=== PATIENT | male | born 1975 | race African-American/Black ===

== ENCOUNTER 2017-12-10 10:53 | Emergency (ER) | payer OTHER ==
[2017-12-10] MEDS ORDERED: LIDOCAINE 1% 20 ML MDV ONE (13:47)
[2017-12-10 16:45] LABS: Appearance VERY TURBID (CLEAR); Body Fluid Source SYNOVIAL; Color of fluid Red (COLORLESS)
--- NOTE | 2017-12-10 17:14 | EDPHYS ---
Physician Documentation [facility] Name: Cameron Presley III Age: 42 yrs Sex: Male : 1975 Arrival Date: 12/10/2017 Time: 11:09 Bed Treatment Private MD: ED Physician Wilmer Sow HPI: 12/10 14:50 This 42 yrs old Black Male presents to ER via Ambulatory with complaints of Knee Pain. rn 14:50 The patient presents with pain, swelling. The complaints affect the right knee. Onset: rn The symptoms/episode began/occurred 2 day(s) ago. Associated signs and symptoms: Pertinent positives: swelling. Severity of symptoms: At their worst the symptoms were mild, in the emergency department the symptoms are unchanged. The patient has experienced similar episodes in the past. Reports right knee pain and swelling for 2 days, no trauma, has happened multiple times in past, no diagnosis, usually lasts for a few days then goes away, hurts to walk and with severe flexion, no fever, no IV drugs. . Historical: - Allergies: 11:12 Iodine; aj - Home Meds: 11:12 Migraine Med nightly [Active]; aj - PMHx: 11:12 Migraines; aj - PSHx: 11:12 None; aj - Immunization history:: Adult Immunizations up to date. - Social history:: Smoking status: Patient uses tobacco products, smokes one-half pack cigarettes per day. - Family history:: not pertinent. - Hospitalizations: : No recent hospitalization is reported. ROS: 14:50 Constitutional: Negative for fever, chills, and weight loss, MS/Extremity: Negative for rn injury and deformity, Neuro: Negative for headache, weakness, numbness, tingling, and seizure. Exam: 14:50 Constitutional: This is a well developed, well nourished patient who is awake, alert, rn and in no acute distress. MS/ Extremity: Pulses equal, no cyanosis. Neurovascular intact. Painful flexion of knee without warmth/erythema, + mild knee effusion. Vital Signs: 11:12 BP 141 / 81; Pulse 82; Resp 19; Temp 98.3; Pulse Ox 97% on R/A; Weight 102.06 kg; aj Height 5 ft. 10 in. (177.80 cm); Pain 8/10; 11:12 Body Mass Index 32.28 (102.06 kg, 177.80 cm) aj Procedures: 14:40 Joint Treatment: Aspiration of right knee using 18 gauge needle, Lidocaine, Removed 5 rn ml's of yellow fluid, bloody fluid, Specimen sent to lab. Patient tolerated well. MDM: 13:17 Patient medically screened. rn 17:10 Differential diagnosis: tendonitis, inflammatory arthritis, internal derangement of rn knee. Data reviewed: vital signs, nurses notes, radiologic studies, plain films, and as a result, I will discharge patient. Counseling: I had a detailed discussion with the patient and/or guardian regarding: the historical points, exam findings, and any diagnostic results supporting the discharge/admit diagnosis, lab results, radiology results, the need for outpatient follow up, to return to the emergency department if symptoms worsen or persist or if there are any questions or concerns that arise at home. Special discussion: I discussed with the patient/guardian in detail that at this point there is no indication for admission to the hospital. It is understood, however, that if the symptoms persist or worsen the patient needs to return immediately for re-evaluation. ED course: Pt improved just with elevation of legs, fluid clotted but only 25% neutrophils, and 0-1 WBC on gram stain without organisms. . 17:10 Special discussion: Further emergent ED testing is not indicated at this point in time. rn I discussed with the patient/guardian in detail the need to arrange with the PCP or specialist further outpatient testing, MRI. 12/10 14:40 Order name: Fluid Cell Count,Body 12/10 14:40 Order name: Fluid Crystals 12/10 14:40 Order name: Body Fluid Culture 12/10 15:23 Order name: Body Fluid Crystals; Complete Time: 15:35 [facility] 12/10 16:47 Order name: Body Fluid Cell Count; Complete Time: 17:04 [facility] 12/10 16:52 Order name: Body Fluid Culture [facility] 12/10 11:15 Order name: XRAY Knee RIGHT 3 view aj Administered Medications: 15:00 Drug: Lidocaine (1 %) 1 vials Volume: 20 ml; Route: Infiltration; iw Disposition: 12/10/17 17:13 Discharged to Home. Impression: Pain in right knee, Inflammatory Arthritis of right knee. - Condition is Stable. - Discharge Instructions: Arthralgia, Knee Effusion, Knee Pain. - Medication Reconciliation Form, Thank You Letter, Antibiotic Education, Prescription Opioid Use form. - Follow up: Noe Armenta MD; When: As needed; Reason: Recheck today's complaints, Re-evaluation by your physician. - Problem is new. - Symptoms have improved. Signatures: Dispatcher [employer] Farrah Pimentel, Taylor Erwin RN, RN RN iw Nieto, Roman, MD MD rn
--- NOTE | 2017-12-10 17:14 | ER ---
Nurse's Notes [facility] Name: Cameron Presley III Age: 42 yrs Sex: Male : 1975 Arrival Date: 12/10/2017 Time: 11:09 Bed Treatment Private MD: Diagnosis: Pain in right knee;Inflammatory Arthritis of right knee Presentation: 12/10 11:10 Presenting complaint: Patient states: Right knee pain and swelling since Thrusday. aj Transition of care: patient was not received from another setting of care. Onset of symptoms was December 06, 2017. Care prior to arrival: None. 11:10 Method Of Arrival: Ambulatory 11:10 Acuity: BOBBY 4 aj Triage Assessment: 11:12 General: Appears in no apparent distress. comfortable, Behavior is calm, cooperative, aj appropriate for age. Pain: Complains of pain in right knee Pain currently is 7 out of 10 on a pain scale. Neuro: Level of Consciousness is awake, alert, obeys commands, Oriented to person, place, time, situation. Respiratory: Airway is patent Respiratory effort is even, unlabored, Respiratory pattern is regular, symmetrical. Derm: Skin is intact, is healthy with good turgor, Skin is pink, warm \T\ dry. normal. Musculoskeletal: Range of motion: intact in all extremities, Swelling present in right knee Reports pain in right knee. Historical: - Allergies: 11:12 Iodine; aj - Home Meds: 11:12 Migraine Med nightly [Active]; aj - PMHx: 11:12 Migraines; aj - PSHx: 11:12 None; aj - Immunization history:: Adult Immunizations up to date. - Social history:: Smoking status: Patient uses tobacco products, smokes one-half pack cigarettes per day. - Family history:: not pertinent. - Hospitalizations: : No recent hospitalization is reported. Screenin:01 Abuse screen: Denies threats or abuse. Denies injuries from another. Nutritional iw screening: No deficits noted. Tuberculosis screening: No symptoms or risk factors identified. Fall Risk None identified. Assessment: 14:30 General: Appears in no apparent distress. comfortable, Behavior is calm, cooperative. iw Pain: Complains of pain in right knee. Neuro: Level of Consciousness is awake, alert, obeys commands, Oriented to person, place, time, situation, Moves all extremities. Full function. Cardiovascular: Patient's skin is warm and dry. Respiratory: Respiratory effort is even, unlabored. Derm: Skin is pink, warm \T\ dry. normal. Musculoskeletal: Range of motion: limited in right knee. 16:00 Reassessment: Patient appears in no apparent distress at this time. Patient and/or iw family updated on plan of care and expected duration. Pain level reassessed. Patient is alert, oriented x 3, equal unlabored respirations, skin warm/dry/pink. Vital Signs: 11:12 BP 141 / 81; Pulse 82; Resp 19; Temp 98.3; Pulse Ox 97% on R/A; Weight 102.06 kg; aj Height 5 ft. 10 in. (177.80 cm); Pain 8/10; 11:12 Body Mass Index 32.28 (102.06 kg, 177.80 cm) aj ED Course: 11:09 Patient arrived in ED. sb2 11:11 Triage completed. aj 11:12 Arm band placed on left wrist. Patient placed in waiting room, Patient notified of wait aj time. 13:09 Taylor Smith, RN is Primary Nurse. iw 13:17 Wilmer Sow MD is Attending Physician. rn 15:00 Assist provider with aspiration of right knee using 18 gauge needle, Lidocaine, fluid iw removed was yellow, Specimen sent to lab. Performed by Wilmer Sow MD Patient tolerated well. 17:00 Patient has correct armband on for positive identification. iw 17:13 Noe Armenta MD is Referral Physician. rn 17:30 Patient did not have IV access during this emergency room visit. iw Administered Medications: 15:00 Drug: Lidocaine (1 %) 1 vials Volume: 20 ml; Route: Infiltration; iw Outcome: 17:13 Discharge ordered by . rn 17:38 Discharged to home ambulatory. iw 17:38 Condition: good 17:38 Discharge instructions given to patient, Instructed on discharge instructions, follow up and referral plans. Demonstrated understanding of instructions, follow-up care. 17:39 Patient left the ED. iw Signatures: Farrah Valero RN Taylor Erwin, RN Wilmer Whyte MD MD rn Billeau, Sheri sb2
[2017-12-10 17:46] VITALS: BP 141/81; TEMP 98.3; O2SAT 97
--- NOTE | 2017-12-10 18:28 | RAD REPORT ---
EXAM DESCRIPTION: RAD - Knee Right 3 View - 12/10/2017 3:45 pm CLINICAL HISTORY: Knee pain COMPARISON: March 2012 FINDINGS: No fracture, dislocation or periosteal reaction.No joint effusion seen. Minimal narrowing of the medial compartment seen. This is similar to the comparison. Minimal spurring at the quadriceps attachment. This is progressed slightly from 2012. No foreign body or other soft tissue abnormality. IMPRESSION: Knee degenerative changes are present minimally progressive from 2012. No acute bone or joint finding confirmed. Clinical concerns for internal derangement or occult bony injury could be further assessed with MR im aging.
== END 2017-12-10 17:39 | disposition home or self-care (01) ==
LOC: ER 10:53
PROC: 0S9C3ZX Drainage of Right Knee Joint, Percutaneous Approach, Diagnostic (ICD-10-PCS; principal; 2017-12-10)
DX: M13.861 Other specified arthritis, right knee (principal); F17.210 Nicotine dependence, cigarettes, uncomplicated; Z91.048 Other nonmedicinal substance allergy status
CPT/HCPCS: 36415; 87070; 89050; 89060; 99284

== ENCOUNTER 2018-07-30 05:39 | Emergency (ER) | payer OTHER, SELFPAY ==
--- OUTSIDE RECORDS SUMMARY | 2018-07-30 05:40 | XMS REPORT ---
:1975 Author Organization [employer] Care Team Providers Name Role Phone Singh, Na Provider Role Unavailable Allergies, Adverse Reactions, Alerts Substance Reaction Event Type N.K.D.A. 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 Problem Migraine without status G43.909 Active migrainosus, not intractable, unspecified migraine type Assessment Acute pain of right knee M25.561 Active Medications Medication Code Code Instructions Start End Status Dosage System Date Date Cambia [facility] 33022006855 50 MG Orally Active not defined Duexis [facility] 51650505864 800-26.6 MG Active 1 tablet Orally Three times a day Qudexy XR [facility] 27995936788 50 MG Orally Active 1 capsule Once a day Indomethacin [facility] 12044881765 50 MG Orally Active 1 capsule with Twice a day food or milk Pennsaid [facility] 36619563815 2 % Transdermal November Active 2 applications Twice a day 2017 25, to affected 2018 area Results No Known Results Summary Purpose [employer] Submission
--- OUTSIDE RECORDS SUMMARY | 2018-07-30 05:40 | XMS REPORT ---
:1975 Author Organization [employer] Care Team Providers Name Role Phone Singh, Na Provider Role Unavailable Allergies, Adverse Reactions, Alerts Substance Reaction Event Type N.K.D.A. Info Not Available Non Drug Allergy Problems Problem Type Condition Code Onset Dates Condition Status Assessment Primary osteoarthritis of right M17.11 Active knee Problem Primary osteoarthritis of right M17.11 Active knee Problem Diverticulitis of intestine without K57.93 Active perforation or abscess with bleeding, unspecified part of intestinal tract Problem Cluster headache G44.009 Active Assessment Effusion, right knee M25.461 Active Assessment Swelling of knee joint, right M25.461 Active Problem Migraine without status G43.909 Active migrainosus, not intractable, unspecified migraine type Assessment Acute pain of right knee M25.561 Active Medications Medication Code Code Instructions Start End Status Dosage System Date Date Qudexy XR [facility] 23267757033 50 MG Orally Active 1 capsule Once a day Cambia [facility] 76954695539 50 MG Orally Active not defined Indomethacin ND 37289570730 50 MG Orally Active 1 capsule with Twice a day food or milk Duexis [facility] 22737368423 800-26.6 MG NovemberFebruary 16, Active 1 tablet Orally Three 2017 times a day Pennsaid [place] 71042162736 2 % Transdermal November Active 2 applications Twice a day 2017, to affected 2018 area Results No Known Results Summary Purpose [employer] Submission
[2018-07-30] MEDS ORDERED: FENTANYL CITR 100 MCG/2 ML ONE ×2 (06:23→07:13)
[2018-07-30] MEDS ORDERED: DIPHENHYDRAMINE 25 MG TAB/CAP ONE (06:25)
[2018-07-30] MEDS ORDERED: ONDANSETRON 4 MG/2 ML VIAL ONE ×2 (06:26→07:13)
[2018-07-30] MEDS ORDERED: METOCLOPRAMIDE 10 MG/2mL INJ ONE (06:26)
[2018-07-30] MEDS ORDERED: KETOROLAC 30 MG/ML INJ ONE (06:26)
[2018-07-30] MEDS ORDERED: NA CHLORIDE 0.9% 1,000 ML ONE (06:26)
[2018-07-30 06:28] LABS: Absolute Lymphocytes (CBC) 1.4 K/uL (0.7-4.9); Absolute Monocytes 0.7 K/uL (0.1-1.3); Absolute Neutrophil 2.8 K/uL (1.8-8.0); Basophils % 0.4 % (0-1.3); Eosinophils % 3.9 % (0-4.4); Hematocrit 44.5 % (39.6-49.0); Lymphocytes % 27.8 % (15.3-44.8); MCH 32.6 pg (27.0-35.0); MCV 92.5 fL (80-100); MPV 9.2 fL (7.6-11.3); Monocytes % 13.5 % (3.3-12.3); RBC Red Blood Cell Count 4.81 M/uL (4.33-5.43)
[2018-07-30 06:46] LABS: ALT/SGPT 27 U/L (12-78); AST/SGOT 24 U/L (15-37); Albumin 3.9 g/dL (3.4-5.0); Alkaline Phosphatase 51 U/L (45-117); BUN Blood Urea Nitrogen 12 mg/dL (7-18); Bicarbonate 28 mmol/L (21-32); Bilirubin Total 0.3 mg/dL (0.2-1.0); Glucose Level 111 mg/dL (74-106); Potassium 3.6 mmol/L (3.5-5.1); Protein, Total 7.1 g/dL (6.4-8.2); Sodium Level 140 mmol/L (136-145)
--- NOTE | 2018-07-30 06:55 | RAD REPORT ---
EXAM DESCRIPTION: CT - Head Brain Wo Cont - 07/30/2018 6:49 am CLINICAL HISTORY: Chronic migraine headache COMPARISON: CT head January 2010 TECHNIQUE: Axial 5 mm thick images of the head were obtained without IV contrast. All CT scans are performed using dose optimization technique as appropriate and may include automated exposure control or mA/KV adjustment according to patient size. FINDINGS: No intracranial hemorrhage, mass, edema or shift of mid-line structures. No acute infarcti on changes seen. No abnormal extra-axial fluid collections. Ventricles are normal. No significant jason nge to the intracranial findings from prior imaging. Mastoid air cells and visualized portions of the paranasal sinuses are clear. No acute bony findings. IMPRESSION: Negative non-contrast CT head examination.
--- NOTE | 2018-07-30 07:21 | EDPHYS ---
Physician Documentation [facility] Name: Cameron Presley III Age: 43 yrs Sex: Male : 1975 Arrival Date: 07/30/2018 Time: 05:39 Bed 14 Private MD: Yina Singh ED Physician Joe Marcelino HPI: 07/30 06:07 This 43 yrs old Black Male presents to ER via Ambulatory with complaints of Headache. jason 06:07 The patient complains of pain to the forehead, right ear, right scientology, right frontal jason area and right temporal area. The patient describes the headache as pounding, a pressure. Onset: The symptoms/episode began/occurred 2 day(s) ago. Associated signs and symptoms: Pertinent positives: nausea. Severity of symptoms: At its worst the pain was moderate, in the emergency department the pain is unchanged. Headache History: The patient has had previous headaches and this one is similar to previous episodes. The symptoms are alleviated by nothing. the symptoms are aggravated by lights, movement, noise. The patient has experienced similar episodes in the past, several times. Historical: - Allergies: 05:45 Iodine; cc3 - Home Meds: 05:45 topiramate 50 mg oral CSpX 1 cap once daily at bedtime [Active]; cc3 - PMHx: 05:45 Migraines; cc3 - PSHx: 05:45 None; cc3 - Immunization history:: Adult Immunizations not up to date. - Social history:: Smoking status: Patient uses tobacco products, smokes one pack cigarettes per day. - Ebola Screening: : No symptoms or risks identified at this time. - Family history:: not pertinent. ROS: 06:07 Constitutional: Negative for fever, chills, and weight loss, Eyes: Negative for injury, jason pain, redness, and discharge, ENT: Negative for injury, pain, and discharge, Neck: Negative for injury, pain, and swelling, Cardiovascular: Negative for chest pain, palpitations, and edema, Respiratory: Negative for shortness of breath, cough, wheezing, and pleuritic chest pain, Abdomen/GI: Negative for abdominal pain, nausea, vomiting, diarrhea, and constipation, Back: Negative for injury and pain, : Negative for injury, bleeding, discharge, and swelling, MS/Extremity: Negative for injury and deformity, Skin: Negative for injury, rash, and discoloration, Psych: Negative for depression, anxiety, suicide ideation, homicidal ideation, and hallucinations, Allergy/Immunology: Negative for hives, rash, and allergies, Endocrine: Negative for neck swelling, polydipsia, polyuria, polyphagia, and marked weight changes, Hematologic/Lymphatic: Negative for swollen nodes, abnormal bleeding, and unusual bruising. 06:07 Neuro: Positive for headache, of the right temporal area and right frontal area and right scientology. Exam: 06:07 Constitutional: This is a well developed, well nourished patient who is awake, alert, jason and in no acute distress. Head/Face: Normocephalic, atraumatic. Eyes: Pupils equal round and reactive to light, extra-ocular motions intact. Lids and lashes normal. Conjunctiva and sclera are non-icteric and not injected. Cornea within normal limits. Periorbital areas with no swelling, redness, or edema. ENT: Nares patent. No nasal discharge, no septal abnormalities noted. Tympanic membranes are normal and external auditory canals are clear. Oropharynx with no redness, swelling, or masses, exudates, or evidence of obstruction, uvula midline. Mucous membranes moist. Neck: Trachea midline, no thyromegaly or masses palpated, and no cervical lymphadenopathy. Supple, full range of motion without nuchal rigidity, or vertebral point tenderness. No Meningismus. Chest/axilla: Normal chest wall appearance and motion. Nontender with no deformity. No lesions are appreciated. Cardiovascular: Regular rate and rhythm with a normal S1 and S2. No gallops, murmurs, or rubs. Normal PMI, no JVD. No pulse deficits. Respiratory: Lungs have equal breath sounds bilaterally, clear to auscultation and percussion. No rales, rhonchi or wheezes noted. No increased work of breathing, no retractions or nasal flaring. Abdomen/GI: Soft, non-tender, with normal bowel sounds. No distension or tympany. No guarding or rebound. No evidence of tenderness throughout. Back: No spinal tenderness. No costovertebral tenderness. Full range of motion. Male : Normal genitalia with no discharge or lesions. Skin: Warm, dry with normal turgor. Normal color with no rashes, no lesions, and no evidence of cellulitis. MS/ Extremity: Pulses equal, no cyanosis. Neurovascular intact. Full, normal range of motion. Neuro: Awake and alert, GCS 15, oriented to person, place, time, and situation. Cranial nerves II-XII grossly intact. Motor strength 5/5 in all extremities. Sensory grossly intact. Cerebellar exam normal. Normal gait. Psych: Awake, alert, with orientation to person, place and time. Behavior, mood, and affect are within normal limits. 06:07 Neck: ROM/movement: is normal, no acute changes, Meningeal signs: are not present, Kernig's sign is negative, Brudzinski's sign is negative. Vital Signs: 05:45 BP 165 / 102; Pulse 81; Resp 20 S; Temp 98(O); Pulse Ox 98% on R/A; Weight 104.33 kg; cc3 Height 5 ft. 10 in. (177.80 cm) (R); Pain 9/10; 07:17 BP 145 / 92; Pulse 52; Resp 17 S; Pulse Ox 100% on R/A; Pain 10/10; sg 05:45 Body Mass Index 33.00 (104.33 kg, 177.80 cm) cc3 MDM: 05:45 Patient medically screened. [facility] 06:10 Data reviewed: vital signs, nurses notes, lab test result(s). [facility] 07/30 06:07 Order name: CBC with Diff; Complete Time: 07:19 jason 07/30 06:07 Order name: Comprehensive Metabolic Panel; Complete Time: 07:19 jason 07/30 06:15 Order name: CT Head Brain wo Cont; Complete Time: 07:19 ms 07/30 06:07 Order name: Oxygen; Complete Time: 06:11 [facility] Administered Medications: 06:15 Drug: Benadryl 50 mg Route: PO; cc3 07:00 Follow up: Response: No adverse reaction; No change in condition 06:20 Drug: NS 0.9% 1000 ml Route: IV; Rate: 1 bolus; Site: right antecubital; cc3 06:23 Drug: fentaNYL (PF) 50 mcg Route: IVP; Site: right antecubital; cc3 07:00 Follow up: Response: No adverse reaction; Pain is unchanged, physician notified 06:26 Drug: TORadol 30 mg Route: IVP; Site: right antecubital; cc3 07:11 Follow up: Response: No adverse reaction; No change in condition sg 06:30 Drug: Reglan 10 mg Route: IVP; Site: right antecubital; cc3 07:00 Follow up: Response: No adverse reaction; Pain is unchanged, physician notified sg 06:35 Drug: Zofran 4 mg Route: IVP; Site: right antecubital; cc3 07:00 Follow up: Response: No adverse reaction; No change in condition sg 07:10 Drug: fentaNYL (PF) 50 mcg Route: IVP; Site: right antecubital; sg 07:10 Drug: Zofran 4 mg Route: IVP; Site: right antecubital; Disposition: 07/30/18 07:20 Discharged to Home. Impression: Headache, Migraine. - Condition is Stable. - Discharge Instructions: Migraine Headache, Migraine Headache, [id number]. - Prescriptions for Fioricet with Codeine 50- 325-40-30 mg Oral capsule - take 1 capsule by ORAL route every 4 hours as needed not to exceed 6 capsules per 24hrs; 24 capsule. Zofran 4 mg Oral Tablet - take 1 tablet by ORAL route every 12 hours As needed; 20 tablet. - Work release form, Medication Reconciliation Form, Thank You Letter, Antibiotic Education, Prescription Opioid Use form. - Follow up: Yina Singh; When: 2 - 3 days; Reason: Recheck today's complaints, Continuance of care, Re-evaluation by your physician. Follow up: Regulo Cole MD; When: 2 - 3 days; Reason: Recheck today's complaints, Re-evaluation by your physician. - Problem is new. - Symptoms have improved. Signatures: Dispatcher [employer] EDCoty Bhandari Steven, RN RN Joe Hernández MD MD cha Cordel, Charlene cc3 Corrections: (The following items were deleted from the chart) 07:21 07:20 07/30/2018 07:20 Discharged to Home. Impression: Headache; Migraine. Condition is jason Stable. Discharge Instructions: Migraine Headache, Migraine Headache, [id number]. Prescriptions for Fioricet with Codeine 03-123-10-30 mg Oral capsule - take 1 capsule by ORAL route every 4 hours as needed not to exceed 6 capsules per 24hrs; 24 capsule, Zofran 4 mg Oral Tablet - take 1 tablet by ORAL route every 12 hours As needed; 20 tablet. and Forms are Medication Reconciliation Form, Thank You Letter, Antibiotic Education, Prescription Opioid Use. Follow up: Yina Singh; When: 2 - 3 days; Reason: Recheck today's complaints, Continuance of care, Re-evaluation by your physician. Problem is new. Symptoms have improved. [facility] 08:03 07:21 07/30/2018 07:20 Discharged to Home. Impression: Headache; Migraine. Condition is bd Stable. Discharge Instructions: Migraine Headache, Migraine Headache, [id number]. Prescriptions for Fioricet with Codeine 79-074-90-30 mg Oral capsule - take 1 capsule by ORAL route every 4 hours as needed not to exceed 6 capsules per 24hrs; 24 capsule, Zofran 4 mg Oral Tablet - take 1 tablet by ORAL route every 12 hours As needed; 20 tablet. and Forms are Medication Reconciliation Form, Thank You Letter, Antibiotic Education, Prescription Opioid Use. Follow up: Yina Singh; When: 2 - 3 days; Reason: Recheck today's complaints, Continuance of care, Re-evaluation by your physician. Follow up: Regulo Cole; When: 2 - 3 days; Reason: Recheck today's complaints, Re-evaluation by your physician. Problem is new. Symptoms have improved. [facility]
--- NOTE | 2018-07-30 07:21 | ER ---
Nurse's Notes [facility] Name: Cameron Presley III Age: 43 yrs Sex: Male : 1975 Arrival Date: 07/30/2018 Time: 05:39 Bed 14 Private MD: Yina Singh Diagnosis: Headache;Migraine Presentation: 07/30 05:45 Presenting complaint: Patient states: intermittent chronic migraine headache since 2 cc3 months. Transition of care: patient was not received from another setting of care. Onset of symptoms was July 30, 2018. Risk Assessment: Do you want to hurt yourself or someone else? Patient reports no desire to harm self or others. Initial Sepsis Screen: Does the patient meet any 2 criteria? No. Patient's initial sepsis screen is negative. Does the patient have a suspected source of infection? No. Patient's initial sepsis screen is negative. Care prior to arrival: Medication(s) given: patient said he took Ibuprofen 2 tabs (800 mg each tab) at around 0300H this morning. 05:45 Method Of Arrival: Ambulatory cc3 05:45 Acuity: BOBBY 3 cc3 Triage Assessment: 05:45 Headache History: The patient has had previous headaches and this one is more severe cc3 than previous episodes. General: Appears in no apparent distress. uncomfortable, Behavior is calm, cooperative, appropriate for age. Pain: Complains of pain in headache Pain currently is 9 out of 10 on a pain scale. Quality of pain is described as aching, Pain began intermittent since 2 months Also complains of no other associated symptoms. EENT: No signs and/or symptoms were reported regarding the EENT system. Neuro: Level of Consciousness is awake, alert, obeys commands, Oriented to person, place, time, situation, Appropriate for age. Cardiovascular: Denies chest pain. Respiratory: Airway is patent Respiratory effort is even, unlabored, Respiratory pattern is regular, symmetrical. GI: Abdomen is round obese. : No signs and/or symptoms were reported regarding the genitourinary system. Derm: No signs and/or symptoms reported regarding the dermatologic system. Musculoskeletal: Circulation, motion, and sensation intact. Range of motion: intact in all extremities. Historical: - Allergies: 05:45 Iodine; cc3 - Home Meds: 05:45 topiramate 50 mg oral CSpX 1 cap once daily at bedtime [Active]; cc3 - PMHx: 05:45 Migraines; cc3 - PSHx: 05:45 None; cc3 - Immunization history:: Adult Immunizations not up to date. - Social history:: Smoking status: Patient uses tobacco products, smokes one pack cigarettes per day. - Ebola Screening: : No symptoms or risks identified at this time. - Family history:: not pertinent. Screenin:45 Abuse screen: Denies threats or abuse. Denies injuries from another. Nutritional cc3 screening: No deficits noted. Tuberculosis screening: No symptoms or risk factors identified. Fall Risk Ambulatory Aid- None/Bed Rest/Nurse Assist (0 pts). Gait- Normal/Bed Rest/Wheelchair (0 pts) Mental Status- Oriented to own ability (0 pts). Assessment: 05:45 General: see triage assessment. cc3 06:40 Reassessment: Patient taken to CT scan department by the molding technician for CT scan [facility] head brain without contrast procedure. 06:55 Reassessment: Patient came back from CT scan department, handed over to morning shift [facility] for continuity of care. 07:08 Reassessment: Patient appears in no apparent distress at this time. Patient and/or sg family updated on plan of care and expected duration. Pain level reassessed. pt tearful, reports no change in condition, reports pain still 10/10, notified, new orders received, pt medicated at this time, see EMAR. 07:12 General: Appears uncomfortable, well groomed, well developed, well nourished. Pain: sg Complains of pain in top of head and forehead. 07:21 Reassessment: awaiting IV bolus to infuse prior to discharge to home. sg Vital Signs: 05:45 BP 165 / 102; Pulse 81; Resp 20 S; Temp 98(O); Pulse Ox 98% on R/A; Weight 104.33 kg; cc3 Height 5 ft. 10 in. (177.80 cm) (R); Pain 9/10; 07:17 BP 145 / 92; Pulse 52; Resp 17 S; Pulse Ox 100% on R/A; Pain 10/10; sg 05:45 Body Mass Index 33.00 (104.33 kg, 177.80 cm) [facility] ED Course: 05:39 Patient arrived in ED. ds1 05:40 Yina Singh MD is Private Physician. ds1 05:44 Joe Marcelino MD is Attending Physician. jason 05:45 Arm band placed on left wrist. cc3 05:45 Patient has correct armband on for positive identification. Bed in low position. Call cc3 light in reach. Side rails up X 1. campus monitor on. Pulse ox on. NIBP on. 05:49 Ciera Kinney is Primary Nurse. cc3 05:57 Triage completed. cc3 06:05 Inserted saline lock: 20 gauge in right antecubital area, using aseptic technique. cc3 Blood collected. 06:[address] via stretcher. kw1 06:49 CT Head Brain wo Cont In Process Unspecified. EDMS 06:50 CT completed. Patient tolerated procedure well. Patient moved back from CT. kw1 06:56 Kenroy Canas RN is Primary Nurse. sg 06:56 Report given to DAVID Jasmine. cc3 06:59 Assisted to bathroom. sg 07:20 Yina Singh MD is Referral Physician. [facility] 07:21 Regulo Cole MD is Referral Physician. [facility] Administered Medications: 06:15 Drug: Benadryl 50 mg Route: PO; cc3 07:00 Follow up: Response: No adverse reaction; No change in condition sg 06:20 Drug: NS 0.9% 1000 ml Route: IV; Rate: 1 bolus; Site: right antecubital; cc3 06:23 Drug: fentaNYL (PF) 50 mcg Route: IVP; Site: right antecubital; cc3 07:00 Follow up: Response: No adverse reaction; Pain is unchanged, physician notified sg 06:26 Drug: TORadol 30 mg Route: IVP; Site: right antecubital; cc3 07:11 Follow up: Response: No adverse reaction; No change in condition sg 06:30 Drug: Reglan 10 mg Route: IVP; Site: right antecubital; cc3 07:00 Follow up: Response: No adverse reaction; Pain is unchanged, physician notified sg 06:35 Drug: Zofran 4 mg Route: IVP; Site: right antecubital; cc3 07:00 Follow up: Response: No adverse reaction; No change in condition sg 07:10 Drug: fentaNYL (PF) 50 mcg Route: IVP; Site: right antecubital; sg 07:10 Drug: Zofran 4 mg Route: IVP; Site: right antecubital; sg Outcome: 07:20 Discharge ordered by MD. gomez 08:03 Patient left the ED. bd Signatures: Dispatcher [employer] EDMS Coty Green Steven, RN RN sg Anderson, Corey, MD MD cha Sanford, Mary Carmen ds1 Elizabeth Borrego1 Ciera Kinney cc3 Corrections: (The following items were deleted from the chart) 06:43 05:45 Headache History: The patient has had previous headaches and this one is similar cc3 to previous episodes, cc3 06:46 06:40 Reassessment: Patient taken to CT scan department by the molding technician. cc3 cc3 06:47 06:40 Reassessment: Patient taken to CT scan department by the molding technician for cc3 CT scan brain without contrast procedure. cc3
[2018-07-30 08:10] VITALS: TEMP 98
[2018-07-30 08:11] VITALS: BP 145/92; O2SAT 100
== END 2018-07-30 08:03 | disposition home or self-care (01) ==
LOC: ER 05:39
DX: G43.909 Migraine, unspecified, not intractable, without status migrainosus (principal); Z91.09 Other allergy status, other than to drugs and biological substances
CPT/HCPCS: 36415; 70450; 80053; 85025; 96374; 96375; 99285; J2405; J2765; J3010; J7030

== ENCOUNTER 2019-09-17 09:36 | Emergency (ER) | payer SELFPAY ==
--- OUTSIDE RECORDS SUMMARY | 2019-09-17 09:38 | XMS REPORT ---
[...] Status Dosage System Date Date Qudexy XR [facility] 79046612291 50 MG Orally Active 1 capsule Once a day Cambia [facility] 28030043747 50 MG Orally Active not defined Indomethacin ND 15680390866 50 MG Orally Active 1 capsule with Twice a day food or milk Duexis [facility] 49540236305 800-26.6 MG NovemberFebruary 16, Active 1 tablet Orally Three 2017 times a day [place] 98215530055 2 % Transdermal November Active 2 applications Twice a day 2017, to affected 2018 area Results No Known Results Summary Purpose eClinicalWorks Submission
--- OUTSIDE RECORDS SUMMARY | 2019-09-17 09:38 | XMS REPORT ---
[...] End Status Dosage System Date Date Cambia [facility] 39149686621 50 MG Orally Active not defined Duexis [facility] 71773628055 800-26.6 MG Active 1 tablet Orally Three times a day Qudexy XR [facility] 52532507378 50 MG Orally Active 1 capsule Once a day Indomethacin [facility] 45677304981 50 MG Orally Active 1 capsule with Twice a day food or milk Pennsaid [facility] 60949100327 2 % Transdermal November Active 2 applications Twice a day 2017 25, to affected 2018 area Results No Known Results Summary Purpose eClinicalWorks Submission
[2019-09-17 10:04] LABS: Absolute Lymphocytes (CBC) 1.6 K/uL (0.7-4.9); Basophils % 0.5 % (0-1.3); Hematocrit 45.2 % (39.6-49.0); Lymphocytes % 27.3 % (15.3-44.8); MPV 8.7 fL (7.6-11.3); RBC Red Blood Cell Count 4.95 M/uL (4.33-5.43)
[2019-09-17 10:05] LABS: Protime INR 1.03
--- NOTE | 2019-09-17 10:29 | RAD REPORT ---
EXAM DESCRIPTION: RAD - Chest Single View - 09/17/2019 10:24 am CLINICAL HISTORY: CHEST PAIN Chest pain. COMPARISON: Chest Pa And Lat (2 Views) dated 12/06/2016; CHEST SINGLE VIEW dated 07/19/2015; CHEST PA AND LAT 2 VIEW dated 10/07/2012; CHEST SINGLE VIEW dated 12/11/2011 FINDINGS: Portable technique limits examination quality. The lungs are grossly clear. The heart is normal in size. No displaced fractures. IMPRESSION: No acute intrathoracic process suspected.
[2019-09-17 11:27] LABS: ALT/SGPT 39 U/L (12-78); AST/SGOT 26 U/L (15-37); Alkaline Phosphatase 63 U/L (45-117); BUN Blood Urea Nitrogen 10 mg/dL (7-18); Bicarbonate 25 mmol/L (21-32); Bilirubin Direct 0.1 mg/dL (0-0.2); Bilirubin Total 0.4 mg/dL (0.2-1.0); Glucose Level 104 mg/dL (74-106); Magnesium 2.1 mg/dL (1.8-2.4); NT PRO-BNP 12 pg/mL (<125); Potassium 3.8 mmol/L (3.5-5.1); Protein, Total 7.7 g/dL (6.4-8.2); Sodium Level 138 mmol/L (136-145); Troponin (Emerg Dept Use Only) < 0.02 ng/mL (0.0-0.045)
--- NOTE | 2019-09-17 13:17 | ER ---
Nurse's Notes [facility] Name: Cameron Presley III Age: 44 yrs Sex: Male : 1975 Arrival Date: 09/17/2019 Time: 09:37 Bed 7 Private MD: Diagnosis: Chest pain, unspecified Presentation: 09/17 09:47 Presenting complaint: Patient states: Sudden onset of left sided chest pain at 0800, jl7 squeezing and SOB, rated 10/10. Pain has decreased but still rated 5/10 at this time. Transition of care: patient was not received from another setting of care. Onset of symptoms was September 17, 2019 at 08:00. Risk Assessment: Do you want to hurt yourself or someone else? Patient reports no desire to harm self or others. Initial Sepsis Screen: Does the patient meet any 2 criteria? No. Patient's initial sepsis screen is negative. Does the patient have a suspected source of infection? No. Patient's initial sepsis screen is negative. Care prior to arrival: None. 09:47 Method Of Arrival: Ambulatory 7 09:47 Acuity: BOBBY 3 jl7 Triage Assessment: 09:49 General: Appears in no apparent distress. uncomfortable, Behavior is cooperative, jl7 appropriate for age, anxious. Pain: Complains of pain in anterior aspect of left upper chest Pain does not radiate. Pain currently is 5 out of 10 on a pain scale. at worst was 10 out of 10 on a pain scale. Quality of pain is described as squeezing, Pain began 2 hours ago. Is intermittent. EENT: No signs and/or symptoms were reported regarding the EENT system. Neuro: Level of Consciousness is awake, alert, obeys commands, Oriented to person, place, time, situation. Cardiovascular: Reports chest pain, Heart tones S1 S2 present Patient's skin is warm and dry. Respiratory: Reports shortness of breath Airway is patent Respiratory effort is even, unlabored, Respiratory pattern is regular, symmetrical, Breath sounds are clear bilaterally. GI: No signs and/or symptoms were reported involving the gastrointestinal system. : No signs and/or symptoms were reported regarding the genitourinary system. Derm: Skin is dry, Skin is normal, Skin temperature is warm. Musculoskeletal: No signs and/or symptoms reported regarding the musculoskeletal system. Historical: - Allergies: 09:49 Iodine; jl7 - Home Meds: 09:49 None [Active]; jl7 - PMHx: 09:49 Migraines; jl7 - PSHx: 09:49 None; jl7 - Immunization history:: Adult Immunizations not up to date. - Social history:: Smoking status: Patient uses tobacco products, smokes one pack cigarettes per day. - Ebola Screening: : No symptoms or risks identified at this time. Screenin:53 Abuse screen: Denies threats or abuse. Denies injuries from another. Nutritional jl7 screening: No deficits noted. Tuberculosis screening: No symptoms or risk factors identified. Fall Risk IV access (20 points). Total Oconnor Fall Scale indicates No Risk (0-24 pts). Assessment: :53 General: See triage assessment. jl7 11:19 Reassessment: Patient appears in no apparent distress at this time. Patient and/or jl7 family updated on plan of care and expected duration. Pain level reassessed. Patient is alert, oriented x 3, equal unlabored respirations, skin warm/dry/pink. Patient states symptoms have improved. Pain: Denies pain. 12:00 Reassessment: Patient appears in no apparent distress at this time. No changes from jl7 previously documented assessment. Patient and/or family updated on plan of care and expected duration. Pain level reassessed. Patient is alert, oriented x 3, equal unlabored respirations, skin warm/dry/pink. 13:03 Reassessment: Patient appears in no apparent distress at this time. No changes from jl7 previously documented assessment. Patient and/or family updated on plan of care and expected duration. Pain level reassessed. Patient is alert, oriented x 3, equal unlabored respirations, skin warm/dry/pink. Vital Signs: 09:49 BP 135 / 91; Pulse 80; Resp 14 S; Pulse Ox 95% on R/A; Weight 111.13 kg (R); Pain 5/10; jl7 11:19 BP 145 / 99; Pulse 76; Resp 17 S; Pulse Ox 96% on R/A; Pain 0/10; jl7 13:03 BP 148 / 85; Pulse 76; Resp 16 S; Pulse Ox 97% on R/A; Pain 0/10; jl7 ED Course: 09:37 Patient arrived in ED. rg4 09:40 Joaquín Goldman MD is Attending Physician. kdr 09:47 Maged Gonsalves, RN is Primary Nurse. jl7 09:49 Triage completed. jl7 :49 Arm band placed on right wrist. jl7 :53 Patient has correct armband on for positive identification. Placed in gown. Bed in low jl7 position. Call light in reach. Side rails up X 1. gambling monitor on. Pulse ox on. NIBP on. :53 EKG completed in triage. Results shown to MD. jl7 :53 Patient maintains SpO2 saturation greater than 95% on room air. jl7 09:55 Inserted saline lock: 22 gauge in left antecubital area, using aseptic technique. Blood kj1 collected. :55 Initial lab(s) drawn, by ED staff, sent to lab. jl7 10:08 XRAY Chest (1 view) In Process Unspecified. EDMS 13:33 No provider procedures requiring assistance completed. IV discontinued, intact, jl7 bleeding controlled, No redness/swelling at site. Pressure dressing applied. Administered Medications: No medications were administered Outcome: 13:15 Discharge ordered by . kdr 13:33 Discharged to home ambulatory. jl7 13:33 Condition: stable 13:33 Discharge instructions given to patient, Instructed on discharge instructions, follow up and referral plans. medication usage, Demonstrated understanding of instructions, follow-up care, medications, Prescriptions given X 3. 13:34 Patient left the ED. jl7 Signatures: Dispatcher [employer] EDIA Joaquín Goldman MD MD kdr Garcia, Rubi rg4 Maged Gonsalves, RN RN jl7 Denisa Verdugo kj1
--- NOTE | 2019-09-17 13:18 | EDPHYS ---
Physician Documentation [facility] Name: Cameron Presley III Age: 44 yrs Sex: Male : 1975 Arrival Date: 09/17/2019 Time: 09:37 Bed 7 Private MD: ED Physician Joaquín Goldman HPI: 09/17 13:07 This 44 yrs old Black Male presents to ER via Ambulatory with complaints of Chest Pain, kdr Breathing Difficulty. 13:07 The patient or guardian reports chest pain that is located primarily in the substernal kdr area, anterior chest wall, left. Onset: suddenly, just prior to arrival. The pain does not radiate. Associated signs and symptoms: Pertinent positives: shortness of breath, Pertinent negatives: diaphoresis, lower extremity pain, lower extremity swelling, nausea, near syncope, palpitations. The chest pain is described as sharp, stabbing. Duration: The patient or guardian reports a single episode, that is now resolved, resolved shortly after arriving in the ED. Severity of pain: At its worst the pain was moderate severe just prior to arrival, in the emergency department the pain has resolved. The patient has not experienced similar symptoms in the past. The patient has not recently seen a physician. The patient had been picking up [place] wrapping paper when he stood up and had immediate tearing midsternal cheat pain that radiated to the middle of his chest. It lasted until shortly after arrival in the ED. At time of exam, he was pain free. He had not had this before and he has minimal risk factors and family history to support cardiac disease/event as a likely cause.. Historical: - Allergies: 09:49 Iodine; jl7 - Home Meds: 09:49 None [Active]; jl7 - PMHx: 09:49 Migraines; jl7 - PSHx: 09:49 None; jl7 - Immunization history:: Adult Immunizations not up to date. - Social history:: Smoking status: Patient uses tobacco products, smokes one pack cigarettes per day. - Ebola Screening: : No symptoms or risks identified at this time. ROS: 13:07 Constitutional: Negative for fever, chills, and weight loss, Eyes: Negative for injury, kdr pain, redness, and discharge, ENT: Negative for injury, pain, and discharge, Neck: Negative for injury, pain, and swelling, Respiratory: Negative for shortness of breath, cough, wheezing, and pleuritic chest pain, Abdomen/GI: Negative for abdominal pain, nausea, vomiting, diarrhea, and constipation, Back: Negative for injury and pain, : Negative for injury, bleeding, discharge, and swelling, MS/Extremity: Negative for injury and deformity, Skin: Negative for injury, rash, and discoloration, Neuro: Negative for headache, weakness, numbness, tingling, and seizure activity. Psych: Negative for depression, anxiety, suicide ideation, homicidal ideation, and hallucinations, Allergy/Immunology: Negative for hives, rash, and allergies, Endocrine: Negative for neck swelling, polydipsia, polyuria, polyphagia, and marked weight changes, Hematologic/Lymphatic: Negative for swollen nodes, abnormal bleeding, and unusual bruising. Exam: 13:07 Constitutional: This is a well developed, well nourished patient who is awake, alert, kdr and in no acute distress. Head/Face: Normocephalic, atraumatic. Eyes: Pupils equal round and reactive to light, extra-ocular motions intact. Lids and lashes normal. Conjunctiva and sclera are non-icteric and not injected. Cornea within normal limits. Periorbital areas with no swelling, redness, or edema. Neck: Trachea midline, no thyromegaly or masses palpated, and no cervical lymphadenopathy. Supple, full range of motion without nuchal rigidity, or vertebral point tenderness. No Meningismus. Chest/axilla: Normal chest wall appearance and motion. Nontender with no deformity. No lesions are appreciated. Cardiovascular: Regular rate and rhythm with a normal S1 and S2. No gallops, murmurs, or rubs. Normal PMI, no JVD. No pulse deficits. Respiratory: Lungs have equal breath sounds bilaterally, clear to auscultation and percussion. No rales, rhonchi or wheezes noted. No increased work of breathing, no retractions or nasal flaring. Abdomen/GI: Soft, non-tender, with normal bowel sounds. No distension or tympany. No guarding or rebound. No evidence of tenderness throughout. Back: No spinal tenderness. No costovertebral tenderness. Full range of motion. Skin: Warm, dry with normal turgor. Normal color with no rashes, no lesions, and no evidence of cellulitis. MS/ Extremity: Pulses equal, no cyanosis. Neurovascular intact. Full, normal range of motion. Neuro: Awake and alert, GCS 15, oriented to person, place, time, and situation. Cranial nerves II-XII grossly intact. Motor strength 5/5 in all extremities. Sensory grossly intact. Cerebellar exam normal. Normal gait. Psych: Awake, alert, with orientation to person, place and time. Behavior, mood, and affect are within normal limits. Vital Signs: 09:49 BP 135 / 91; Pulse 80; Resp 14 S; Pulse Ox 95% on R/A; Weight 111.13 kg (R); Pain 5/10; jl7 11:19 BP 145 / 99; Pulse 76; Resp 17 S; Pulse Ox 96% on R/A; Pain 0/10; jl7 13:03 BP 148 / 85; Pulse 76; Resp 16 S; Pulse Ox 97% on R/A; Pain 0/10; jl7 MDM: 13:07 HEART Score: History: Slightly Suspicious (0), ECG: Normal (0), Age: < or = 45 years kdr (0), Risk Factors: No Risk Factors Known (0), Troponin: < or = 1 x Normal Limit (0), Total Score = 0. Data reviewed: vital signs, nurses notes, lab test result(s), radiologic studies. 13:15 Patient medically screened. [facility] 09/17 09:49 Order name: Basic Metabolic Panel; Complete Time: 11:[address] [facility] 09/17 09:49 Order name: CBC with Diff; Complete Time: 11:[address] [facility] 09/17 09:49 Order name: LFT's; Complete Time: 11:[address] [facility] 09/17 09:49 Order name: Magnesium; Complete Time: 11:[address] [facility] 09/17 09:49 Order name: NT PRO-BNP; Complete Time: 11:[address] [facility] 09/17 09:49 Order name: PT-INR; Complete Time: 11:[address] [facility] 09/17 09:49 Order name: Troponin (emerg Dept Use Only); Complete Time: 11:[address] [facility] 09/17 09:49 Order name: XRAY Chest (1 view); Complete Time: 11:[address] [facility] 09/17 09:49 Order name: EKG; Complete Time: 09:[address] [facility] 09/17 09:49 Order name: Cardiac monitoring; Complete Time: 09:[address] [facility] 09/17 09:49 Order name: EKG - Nurse/Tech; Complete Time: 09:[address] [facility] 09/17 09:49 Order name: IV Saline Lock; Complete Time: 09:[address] [facility] 09/17 09:49 Order name: Labs collected and sent; Complete Time: 09:[address] [facility] 09/17 11:50 Order name: Troponin (emerg Dept Use Only); Complete Time: 13:[address] [facility] 09/17 09:49 Order name: O2 Per Protocol; Complete Time: 09:[address] [facility] 09/17 09:49 Order name: O2 Sat Monitoring; Complete Time: 09:[address] [facility] 09/17 10:20 Order name: Labs - recollect needed: chemistry; Complete Time: 10:47 iw Administered Medications: No medications were administered Disposition: 09/17/19 13:15 Discharged to Home. Impression: Chest pain, unspecified. - Condition is Stable. - Discharge Instructions: Nonspecific Chest Pain, [id number]. - Prescriptions for Ibuprofen 800 mg Oral Tablet - take 1 tablet by ORAL route every 12 hours As needed take with food; 20 tablet. Pepcid 20 mg Oral Tablet - take 1 tablet by ORAL route every 12 hours for 10 days; 20 tablet. Tramadol 50 mg Oral Tablet - take 1 tablet by ORAL route every 8 hours as needed; 12 tablet. - Medication Reconciliation Form, Thank You Letter, Prescription Opioid Use form. - Follow up: Private Physician; When: 2 - 3 days; Reason: If symptoms return, Further diagnostic work-up, Recheck today's complaints, Continuance of care, Re-evaluation by your physician. - Problem is new. - Symptoms are resolved. Signatures: Dispatcher [employer] EDDE Joaquín Goldman MD MD kdr Taylor Smith RN RN iw Maged Gonsalves RN RN jl7 Corrections: (The following items were deleted from the chart) 13:34 13:15 09/17/2019 13:15 Discharged to Home. Impression: Chest pain, unspecified. jl7 Condition is Stable. Forms are Medication Reconciliation Form, Thank You Letter, Antibiotic Education, Prescription Opioid Use. Follow up: Private Physician; When: 2 - 3 days; Reason: If symptoms return, Further diagnostic work-up, Recheck today's complaints, Continuance of care, Re-evaluation by your physician. Problem is new. Symptoms are resolved. kdr
[2019-09-17 13:44] VITALS: BP 148/85; O2SAT 97
--- NOTE | 2019-09-18 08:10 | EKG ---
Test Date: 2019-09-17 Test Time: 09:42:37 [employer] Dessert: [place] MEASUREMENT RESULTS: Intervals: Rate: 81 CA: 216 QRSD: 94 QT: 354 QTc: 411 Bruno: P: 49 CA: 216 QRS: 64 T: 32 INTERPRETIVE STATEMENTS: Sinus rhythm with 1st degree AV block Otherwise normal ECG Compared to ECG 12/06/2016 08:41:05 First degree AV block now present Electronically Signed On 09-18-19 08:10:04 ASSISTANT SECRETARY by Yohannes Chao
== END 2019-09-17 13:34 | disposition home or self-care (01) ==
LOC: ER 09:36
DX: R07.9 Chest pain, unspecified (principal); Z91.09 Other allergy status, other than to drugs and biological substances; F17.210 Nicotine dependence, cigarettes, uncomplicated
CPT/HCPCS: 36415; 71045; 80048; 80076; 83735; 83880; 84484; 85025; 85610; 93005; 99285

== ENCOUNTER 2019-12-30 09:33 | Emergency (ER) | payer SELFPAY ==
[2019-12-30] MEDS ORDERED: KETOROLAC 30 MG/ML INJ ONE (09:55)
[2019-12-30] MEDS ORDERED: METOCLOPRAMIDE 10 MG/2mL INJ ONE (09:55)
[2019-12-30] MEDS ORDERED: DIPHENHYDRAMINE 50 MG/ML VIAL ONE (09:55)
[2019-12-30] MEDS ORDERED: NA CHLORIDE 0.9% 1,000 ML ONE (09:55)
[2019-12-30] MEDS ORDERED: NA CHLORIDE 0.9% 50 ML IV ONE (09:59)
[2019-12-30] MEDS ORDERED: METHYLPREDNISOLONE 125 MG INJ ONE (10:01)
[2019-12-30] MEDS ORDERED: FAMOTIDINE 20 MG/2 ML VIAL IV ONE (10:01)
[2019-12-30 10:05] LABS: Absolute Lymphocytes (CBC) 1.7 K/uL (0.7-4.9); Basophils % 0.6 % (0-1.3); Hematocrit 46.1 % (39.6-49.0); Lymphocytes % 21.3 % (15.3-44.8); MPV 8.8 fL (7.6-11.3); RBC Red Blood Cell Count 5.04 M/uL (4.33-5.43)
--- NOTE | 2019-12-30 10:22 | RAD REPORT ---
EXAM DESCRIPTION: CT - Head Brain Wo Cont - 12/30/2019 10:07 am CLINICAL HISTORY: WORST HEADACHE COMPARISON: Head Brain Wo Cont dated 07/30/2018 TECHNIQUE: Axial 5 mm thick images of the head were obtained without IV contrast. All CT scans are performed using dose optimization technique as appropriate and may include automated exposure control or mA/KV adjustment according to patient size. FINDINGS: No intracranial hemorrhage, mass, edema or shift of mid-line structures. No acute infarcti on changes seen. No abnormal extra-axial fluid collections. Ventricles are normal. Mastoid air cells and visualized portions of the paranasal sinuses are clear. No acute bony findings. No changes from prior imaging. IMPRESSION: Negative non-contrast CT head examination.
[2019-12-30 10:31] LABS: ALT/SGPT 34 U/L (12-78); AST/SGOT 21 U/L (15-37); Albumin 3.9 g/dL (3.4-5.0); Alkaline Phosphatase 70 U/L (45-117); BUN Blood Urea Nitrogen 7 mg/dL (7-18); Bicarbonate 25 mmol/L (21-32); Bilirubin Total 0.4 mg/dL (0.2-1.0); Glucose Level 96 mg/dL (74-106); Potassium 3.5 mmol/L (3.5-5.1); Protein, Total 7.9 g/dL (6.4-8.2); Sodium Level 137 mmol/L (136-145)
--- OUTSIDE RECORDS SUMMARY | 2019-12-30 10:39 | XMS REPORT ---
:1975 Author Organization [employer] Care Team Providers Name Role Phone Singh, Na Provider Role Unavailable Allergies, Adverse Reactions, Alerts Substance Reaction Event Type N.K.D.A. Info Not Available Non Drug Allergy Problems Problem Type Condition Code Onset Dates Condition Statu s Assessment Primary osteoarthritis of right M17.11 Active knee Problem Primary osteoarthritis of right M17.11 Active knee Problem Diverticulitis of intestine without K57.93 Active perforation or abscess with bleeding, unspecified part of intestinal tract Problem Cluster headache G44.009 Active Assessment Effusion, right knee M25.461 Active Assessment Swelling of knee joint, right M25.461 Active Problem Migraine without status G43.909 Acti ve migrainosus, not intractable, unspecified migraine type Assessment Acute pain of right knee M25.561 Act arlene Medications Medication Code Code Instructions Start End Status Dosage System Date Date Qudexy XR [facility] 21894196830 50 MG Orally Active 1 cap garry Once a day Cambia [facility] 15234284819 50 MG Orally Active not def ined Indomethacin ND 12554380507 50 MG Orally Active 1 capsule with Twice a day food or milk Duexis [facility] 45294573180 800-26.6 MG NovemberFebruary 16, Active 1 tablet Orally Three 2017 times a day [place] 91329847653 2 % Transdermal November Active 2 a pplications Twice a day 2017 25, to affected 2018 area Results No Known Results Summary Purpose eClinicalWorks Submission
--- OUTSIDE RECORDS SUMMARY | 2019-12-30 10:39 | XMS REPORT ---
:1975 Author Organization [employer] Care Team Providers Name Role Phone Singh, Na Provider Role Unavailable Allergies, Adverse Reactions, Alerts Substance Reaction Event Type N.K.D.A. 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 Problem Migraine without status G43.909 Acti ve migrainosus, not intractable, unspecified migraine type Assessment Acute pain of right knee M25.561 Act arlene Medications Medication Code Code Instructions Start End Status Dosage System Date Date Cambia [facility] 00346389120 50 MG Orally Active not def ined Duexis [facility] [place] 90921813195 800-26.6 MG Active 1 tablet Orally Three times a day Qudexy XR ND 33206100385 50 MG Orally Active 1 cap garry Once a day Indomethacin ND 42695614071 50 MG Orally Active 1 capsule with Twice a day food or milk Pennsaid [facility] 89924749963 2 % Transdermal November Active 2 a pplications Twice a day 2017 25, to affected 2018 area Results No Known Results Summary Purpose eClinicalWorks Submission
[2019-12-30 10:55] LABS: Urine Blood TRACE (NEG); Urine Glucose NEGATIVE (NEG); Urine Protein NEGATIVE (NEG); Urine Specific Gravity 1.015 (1.005-1.030)
--- NOTE | 2019-12-30 11:45 | ER ---
Nurse's Notes [facility] Name: Cameron Presley III Age: 44 yrs Sex: Male : 1975 Arrival Date: 12/30/2019 Time: 09:37 Bed 6 Private MD: Diagnosis: Migraine;Essential (primary) hypertension Presentation: 12/29 09:47 Chief complaint: Patient states: migraine that began 1 week ago. History of migraines. ss Pt reports that he hasn't had one in 2 years, but this feels similar to one he has had in the past. Coronavirus screen: Proceed with normal triage. Patient denies a cough. Patient denies shortness of breath or difficulty breathing. Patient denies measured and/or subjective temperature greater than 100.4F prior to today's visit. Patient denies travel on a cruise ship or to a country the [facility] currently lists as an affected area. Patient denies contact with known and/or suspected case of COVID-19. Ebola Screen: Patient denies exposure to infectious person. Patient denies travel to an Ebola-affected area in the 21 days before illness onset. Initial Sepsis Screen: Does the patient meet any 2 criteria? No. Patient's initial sepsis screen is negative. Does the patient have a suspected source of infection? No. Patient's initial sepsis screen is negative. Risk Assessment: Do you want to hurt yourself or someone else? Patient reports no desire to harm self or others. Onset of symptoms was December 24, 2019. 09:47 Method Of Arrival: Ambulatory 09:47 Acuity: BOBBY 3 Historical: - Allergies: 09:52 Iodine; ss - Home Meds: 09:52 None [Active]; ss - PMHx: 09:52 Migraines; ss - PSHx: 09:52 None; ss - Immunization history:: Adult Immunizations up to date. - Social history:: Smoking status: Patient denies any tobacco usage or history of. - Family history:: not pertinent. Screenin:00 Abuse screen: Denies threats or abuse. Denies injuries from another. Nutritional hb screening: No deficits noted. Tuberculosis screening: No symptoms or risk factors identified. Fall Risk None identified. Assessment: 10:00 General: Appears in no apparent distress. uncomfortable, Behavior is cooperative. Pain: hb Pain currently is 8 out of 10 on a pain scale. Neuro: Level of Consciousness is awake, alert, obeys commands, Oriented to person, place, time, situation. Cardiovascular: Capillary refill < 3 seconds Patient's skin is warm and dry. Respiratory: Airway is patent Respiratory effort is even, unlabored, Respiratory pattern is regular, symmetrical. GI: Reports nausea, vomiting. : No signs and/or symptoms were reported regarding the genitourinary system. EENT: No signs and/or symptoms were reported regarding the EENT system. Derm: Skin is pink, warm \\T\\ dry. Musculoskeletal: No signs and/or symptoms reported regarding the musculoskeletal system. 10:03 Neuro: Reports blurred vision headache in right parietal area, frontal area, that is ph the "worst ever", photophobia. 10:52 Reassessment: Pt is sleeping at this time. Is easily wakes to verbal stimuli. Reports ss feeling better. Awaiting CTA. 12:04 Reassessment: Patient appears in no apparent distress at this time. Patient and/or ph family updated on plan of care and expected duration. Pain level reassessed. Pt asleep, awakens easily to verbal stimuli, remains drowsy after IV medications, will continue to monitor until more alert, d/c pending. 13:28 Reassessment: Patient appears in no apparent distress at this time. Patient and/or ph family updated on plan of care and expected duration. Pain level reassessed. Patient is alert, oriented x 3, equal unlabored respirations, skin warm/dry/pink. Pt awake and alert, reports that pain has decreased to 2/10, provided w/ work note and d/c home. Vital Signs: 09:47 BP 159 / 97; Pulse 88; Resp 16; Temp 98.0(TE); Pulse Ox 97% on R/A; Weight 106.59 kg; ss Pain 8/10; 11:14 BP 161 / 85; Pulse 71; Resp 16; Temp 98.1(TE); Pulse Ox 95% on R/A; mh5 12:30 BP 157 / 86; Pulse 76; Resp 18; Pulse Ox 98% on R/A; ph 13:23 BP 147 / 80; Pulse 68; Resp 18; Temp 98.0; Pulse Ox 97% on R/A; ph ED Course: 09:37 Patient arrived in ED. fj1 09:39 Joe Marcelino MD is Attending Physician. jason 09:41 Nazanin Jimenez, RN is Primary Nurse. ph 09:45 Patient has correct armband on for positive identification. Bed in low position. Call mh5 light in reach. Pulse ox on. NIBP on. 09:51 Triage completed. ss 09:52 Arm band placed on right wrist. ss 10:08 Head Brain Wo Cont In Process Unspecified. EDMS 10:50 Inserted saline lock: 20 gauge in right antecubital area, using aseptic technique. ss Blood collected. 11:17 CT Head Angio In Process Unspecified. EDMS 11:44 Regulo Cole MD is Referral Physician. jason 13:27 No provider procedures requiring assistance completed. IV discontinued, intact, ph bleeding controlled, No redness/swelling at site. Pressure dressing applied. Administered Medications: 09:58 Drug: Pepcid 20 mg Route: IVP; Site: left hand; hb 13:23 Follow up: Response: No adverse reaction ph 09:59 Drug: NS 0.9% 500 ml Route: IV; Rate: bolus; Site: left hand; hb 12:30 Follow up: Response: No adverse reaction; IV Status: Completed infusion; IV Intake: ph 500ml 09:59 Drug: TORadol 30 mg Route: IVP; Site: left hand; hb 10:52 Follow up: Response: No adverse reaction; Marked relief of symptoms; Pain is decreased ss 09:59 Drug: Benadryl 50 mg Route: IVP; Site: left hand; hb 10:51 Follow up: Response: No adverse reaction; Marked relief of symptoms; Pain is decreased ss 09:59 Drug: Reglan 10 mg Route: IVP; Site: left hand; hb 13:23 Follow up: Response: No adverse reaction ph 09:59 Drug: SOLU-Medrol 125 mg Route: IVP; Site: left hand; hb 13:23 Follow up: Response: No adverse reaction ph 12:04 Drug: Norvasc 10 mg Route: PO; ph 13:23 Follow up: Response: No adverse reaction ph 13:22 Not Given (Other Intervention Used): NS 0.9% 1000 ml IV at 125 ml/hr continuous ph Intake: 12:30 IV: 500ml; Total: 500ml. ph Outcome: 11:44 Discharge ordered by . jason 13:27 Discharged to home ambulatory. ph 13:27 Condition: improved 13:27 Discharge instructions given to patient, Instructed on discharge instructions, follow up and referral plans. medication usage, Demonstrated understanding of instructions, follow-up care, medications, Prescriptions given X 3. 13:29 Patient left the ED. Signatures: Dispatcher [employer] EDMN Joe Marcelino MD MD cha Smirch, Shelby, RN RN ss Hall, Patricia, RN RN Lisa Estrada RN RN Norma Benitez [facility] Silvano Arredondo [facility]
--- NOTE | 2019-12-30 11:45 | EDPHYS ---
Physician Documentation [facility] Name: Cameron Presley III Age: 44 yrs Sex: Male : 1975 Arrival Date: 12/30/2019 Time: 09:37 Bed 6 Private MD: EMILIA Physician Joe Marcelino HPI: 12/29 09:46 This 44 yrs old Black Male presents to ER via Unassigned with complaints of Headache, jason Worst Ever, Nausea/Vomiting. 09:46 The patient complains of pain to the top of head, forehead, left frontal area, left jason side of the back of head, left occipital area, left base of the skull, right frontal area, right side of the back of head, right occipital area and right base of the skull. The patient describes the headache as constant, pounding. Onset: The symptoms/episode began/occurred 3 day(s) ago. Associated signs and symptoms: Pertinent positives: nausea, vomiting. Severity of symptoms: At its worst the pain was mild, moderate, in the emergency department the pain is unchanged. Headache History: The patient has had previous headaches and this one is similar to previous episodes. The symptoms are alleviated by nothing. the symptoms are aggravated by lights, movement. The patient has experienced similar episodes in the past, multiple times. Historical: - Allergies: 09:52 Iodine; ss - Home Meds: :52 None [Active]; ss - PMHx: 09:52 Migraines; ss - PSHx: 09:52 None; ss - Immunization history:: Adult Immunizations up to date. - Social history:: Smoking status: Patient denies any tobacco usage or history of. - Family history:: not pertinent. ROS: 09:46 Constitutional: Negative for fever, chills, and weight loss, Eyes: Negative for injury, jason pain, redness, and discharge, ENT: Negative for injury, pain, and discharge, Neck: Negative for injury, pain, and swelling, Cardiovascular: Negative for chest pain, palpitations, and edema, Respiratory: Negative for shortness of breath, cough, wheezing, and pleuritic chest pain, Abdomen/GI: Negative for abdominal pain, nausea, vomiting, diarrhea, and constipation, Back: Negative for injury and pain, : Negative for injury, bleeding, discharge, and swelling, MS/Extremity: Negative for injury and deformity, Skin: Negative for injury, rash, and discoloration, Psych: Negative for depression, anxiety, suicide ideation, homicidal ideation, and hallucinations, Allergy/Immunology: Negative for hives, rash, and allergies, Endocrine: Negative for neck swelling, polydipsia, polyuria, polyphagia, and marked weight changes, Hematologic/Lymphatic: Negative for swollen nodes, abnormal bleeding, and unusual bruising. 09:46 Neuro: Positive for dizziness, headache. Exam: 09:46 Constitutional: This is a well developed, well nourished patient who is awake, alert, jason and in no acute distress. Head/Face: Normocephalic, atraumatic. Eyes: Pupils equal round and reactive to light, extra-ocular motions intact. Lids and lashes normal. Conjunctiva and sclera are non-icteric and not injected. Cornea within normal limits. Periorbital areas with no swelling, redness, or edema. ENT: Nares patent. No nasal discharge, no septal abnormalities noted. Tympanic membranes are normal and external auditory canals are clear. Oropharynx with no redness, swelling, or masses, exudates, or evidence of obstruction, uvula midline. Mucous membranes moist. Neck: Trachea midline, no thyromegaly or masses palpated, and no cervical lymphadenopathy. Supple, full range of motion without nuchal rigidity, or vertebral point tenderness. No Meningismus. Chest/axilla: Normal chest wall appearance and motion. Nontender with no deformity. No lesions are appreciated. Cardiovascular: Regular rate and rhythm with a normal S1 and S2. No gallops, murmurs, or rubs. Normal PMI, no JVD. No pulse deficits. Respiratory: Lungs have equal breath sounds bilaterally, clear to auscultation and percussion. No rales, rhonchi or wheezes noted. No increased work of breathing, no retractions or nasal flaring. Abdomen/GI: Soft, non-tender, with normal bowel sounds. No distension or tympany. No guarding or rebound. No evidence of tenderness throughout. Back: No spinal tenderness. No costovertebral tenderness. Full range of motion. Male : Normal genitalia with no discharge or lesions. Skin: Warm, dry with normal turgor. Normal color with no rashes, no lesions, and no evidence of cellulitis. MS/ Extremity: Pulses equal, no cyanosis. Neurovascular intact. Full, normal range of motion. Neuro: Awake and alert, GCS 15, oriented to person, place, time, and situation. Cranial nerves II-XII grossly intact. Motor strength 5/5 in all extremities. Sensory grossly intact. Cerebellar exam normal. Normal gait. Psych: Awake, alert, with orientation to person, place and time. Behavior, mood, and affect are within normal limits. Vital Signs: 09:47 BP 159 / 97; Pulse 88; Resp 16; Temp 98.0(TE); Pulse Ox 97% on R/A; Weight 106.59 kg; ss Pain 8/10; 11:14 BP 161 / 85; Pulse 71; Resp 16; Temp 98.1(TE); Pulse Ox 95% on R/A; mh5 12:30 BP 157 / 86; Pulse 76; Resp 18; Pulse Ox 98% on R/A; ph 13:23 BP 147 / 80; Pulse 68; Resp 18; Temp 98.0; Pulse Ox 97% on R/A; ph MDM: 09:40 Patient medically screened. [facility] 09:53 Data reviewed: vital signs, nurses notes, lab test result(s), EKG, radiologic studies, [facility] CT scan. 12/29 09:46 Order name: CBC with Diff; Complete Time: 11:35 jason 12/29 09:46 Order name: Comprehensive Metabolic Panel; Complete Time: 11:35 [facility] 12/29 09:46 Order name: CT Head Angio [facility] 12/29 09:52 Order name: Head Brain Wo Cont; Complete Time: 11:35 EDMS 12/29 10:52 Order name: Urine Dipstick--Ancillary (enter results); Complete Time: 11:35 12/29 09:46 Order name: EKG; Complete Time: 09:47 [facility] 12/29 09:46 Order name: Urine Dipstick-Ancillary (obtain specimen); Complete Time: 11:43 jason 12/29 09:46 Order name: EKG - Nurse/Tech; Complete Time: 10:00 [facility] 12/29 09:46 Order name: Oxygen; Complete Time: 09:59 [facility] 12/29 12:21 Order name: Diet Heart Healthy; Complete Time: 12:21 bd Administered Medications: 09:58 Drug: Pepcid 20 mg Route: IVP; Site: left hand; hb 13:23 Follow up: Response: No adverse reaction ph 09:59 Drug: NS 0.9% 500 ml Route: IV; Rate: bolus; Site: left hand; hb 12:30 Follow up: Response: No adverse reaction; IV Status: Completed infusion; IV Intake: ph 500ml 09:59 Drug: TORadol 30 mg Route: IVP; Site: left hand; hb 10:52 Follow up: Response: No adverse reaction; Marked relief of symptoms; Pain is decreased ss 09:59 Drug: Benadryl 50 mg Route: IVP; Site: left hand; hb 10:51 Follow up: Response: No adverse reaction; Marked relief of symptoms; Pain is decreased ss 09:59 Drug: Reglan 10 mg Route: IVP; Site: left hand; hb 13:23 Follow up: Response: No adverse reaction ph 09:59 Drug: SOLU-Medrol 125 mg Route: IVP; Site: left hand; hb 13:23 Follow up: Response: No adverse reaction ph 12:04 Drug: Norvasc 10 mg Route: PO; ph 13:23 Follow up: Response: No adverse reaction ph 13:22 Not Given (Other Intervention Used): NS 0.9% 1000 ml IV at 125 ml/hr continuous ph Disposition: 12/30/19 11:44 Discharged to Home. Impression: Migraine, Essential (primary) hypertension. - Condition is Stable. - Discharge Instructions: Migraine Headache, Hypertension, Hypertension, [id number]. - Prescriptions for Fioricet with Codeine 50- 325-40-30 mg Oral capsule - take 1 capsule by ORAL route every 4 hours as needed not to exceed 6 capsules per 24hrs; 24 capsule. Norvasc 5 mg Oral Tablet - take 1 tablet by ORAL route once daily; 20 tablet. Zofran 4 mg Oral Tablet - take 1 tablet by ORAL route every 12 hours As needed; 14 tablet. - Medication Reconciliation Form, Thank You Letter, Antibiotic Education, Prescription Opioid Use, Work release form form. - Follow up: Private Physician; When: 2 - 3 days; Reason: Recheck today's complaints, Continuance of care, Re-evaluation by your physician. Follow up: Regulo Cole; When: 2 - 3 days; Reason: Recheck today's complaints, Continuance of care, Re-evaluation by your physician. - Problem is new. - Symptoms have improved. Signatures: Dispatcher [employer] EDMS Joe Marcelino MD MD cha Smirch, Shelby, DAVID RN Nazanin Jimenez, RN RN Lisa Estrada, DAVID RN Corrections: (The following items were deleted from the chart) 13:29 11:44 12/30/2019 11:44 Discharged to Home. Impression: Migraine; Essential (primary) ph hypertension. Condition is Stable. Discharge Instructions: Migraine Headache, Hypertension, Hypertension, [id number]. Prescriptions for Fioricet with Codeine 48-880-43-30 mg Oral capsule - take 1 capsule by ORAL route every 4 hours as needed not to exceed 6 capsules per 24hrs; 24 capsule, Norvasc 5 mg Oral Tablet - take 1 tablet by ORAL route once daily; 20 tablet, Zofran 4 mg Oral Tablet - take 1 tablet by ORAL route every 12 hours As needed; 14 tablet. and Forms are Medication Reconciliation Form, Thank You Letter, Antibiotic Education, Prescription Opioid Use. Follow up: Private Physician; When: 2 - 3 days; Reason: Recheck today's complaints, Continuance of care, Re-evaluation by your physician. Follow up: Regulo Cole; When: 2 - 3 days; Reason: Recheck today's complaints, Continuance of care, Re-evaluation by your physician. Problem is new. Symptoms have improved. jason
--- NOTE | 2019-12-30 11:51 | RAD REPORT ---
EXAM DESCRIPTION: CT - Head angio - 12/30/2019 11:16 am CLINICAL HISTORY: HEADACHE TECHNIQUE: During dynamic enhancement using nonionic IV contrast, axial 1 millimeter thick images of the head were obtained. Sagittal and axial reconstruction images were generated using MIP technique and reviewed. All CT scans are performed using dose optimization technique as appropriate and may include automated exposure control or mA/KV adjustment according to patient size. FINDINGS: No aneurysm or vascular malformation identified. Major venous sinuses are patent. No stenosis, named branch occlusion, vasculitis or other significant vascular finding identifiable. IMPRESSION: Negative CT angio head examination.
[2019-12-30] MEDS ORDERED: AMLODIPINE 5 MG TAB ONE ×2 (12:03→12:07)
[2019-12-30 14:04] VITALS: BP 147/80; TEMP 98; O2SAT 97
--- NOTE | 2019-12-31 15:55 | EKG ---
Test Date: 2019-12-30 Test Time: 09:58:14 Hand Umbrella Tipper: SUZANNE MEASUREMENT RESULTS: Intervals: Rate: 71 WV: 216 QRSD: 86 QT: 372 QTc: 404 Somis: P: 54 WV: 216 QRS: 64 T: 36 INTERPRETIVE STATEMENTS: Sinus rhythm with 1st degree AV block Cannot rule out Anterior infarct, age undetermined Abnormal ECG Compared to ECG 09/17/2019 09:42:37 Myocardial infarct finding now present Electronically Signed On 12-31-19 15:50:56 CDT by Yohannes Chao
== END 2019-12-30 13:29 | disposition home or self-care (01) ==
LOC: ER 09:33
DX: G43.909 Migraine, unspecified, not intractable, without status migrainosus (principal); I10 Essential (primary) hypertension; Z91.048 Other nonmedicinal substance allergy status
CPT/HCPCS: 36415; 70450; 70496; 80053; 81003; 85025; 93005; 96361; 96374; 96375; 99284; J1200; J2765; J2930; J7030; Q9967

== ENCOUNTER 2020-03-16 07:30 | Emergency (ER) | payer OTHER, SELFPAY ==
--- OUTSIDE RECORDS SUMMARY | 2020-03-16 07:47 | XMS REPORT | Continuity of Care Document ---
:1975 Author Organization [facility] t Address [address] [place] [address] Care Team Providers Name Role Phone Unavailable Unavailable Unavailable Problems Condition Condition Condition Status Onset Resolution Last Treating Co mments Source Name Details Category Date Date Treatment Clinician Date Primary Primary Problem Active [facility] osteoarthr osteoarthr Isabela kes - [facility] right knee right knee l Outpat[facility] ent Clinics Diverticul Diverticul Problem Active [facility] - intestine intestine Mike khoa without without l perforatio perforatio Ou tpati n or n or ent abscess abscess Clinics with with bleeding, bleeding, unspecifie unspecifie d part of d part of intestinal intestinal tract tract Cluster Cluster Problem Active [facility] headache headache [facility] Migraine Migraine Problem [facility] without without [facility] - status status [facility] migrainosu migrainosu l s, not s, not Outpati intractabl intractabl en t e, e, Clinics unspecifie unspecifie d migraine d migraine type type Acute pain Acute pain Diagnosis Active [facility] of right of right [facility] - knee knee [facility] Instabilit Instabilit Diagnosis Active [facility] y of right y of right Isabela kes - knee joint knee joint Me [facility]ia l Outpati ent Clinics Allergies, Adverse Reactions, Alerts This patient has no known allergies or adverse reactions. Medications Ordered Filled Start Stop Current Ordering Indication Dosage Frequency Signature Comments Components Source Medication Medication Date Date Medication? Clinician (SIG) Name Name Hiram Pennsaid 2018- No Na Singh [address] 303-18 applicatio [facility] - 00:[facility]: [facility] ns to [facility] 00 :00 affected l area Outpati ent Clinics Duexis Duexis 2017- No Na Singh [address] 3- 0526 [facility] Qudexy XR Qudexy XR Yes Na Singh [address] [facility] Cambia Cambia Yes Na Singh not [facility] defined [facility] Indomethaci Indomethaci Yes Na Singh [address] [facility] n n with food [facility] - or [facility] Procedures This patient has no known procedures. Encounters Start End Encounter Admission Attending Care Care Encounter Source Date/Time Date/Time Type Type Clinicians Facility Department ID 2017-12-25 2017-12-25 Outpatient Meera Perez [id number] [facility] 14:15:00 14:15:00 [email or web address] 2017-12-18 2017-12-18 Outpatient Meera Perez [id number] [facility] 11:30:00 11:30:00 [email or web address] Clinics Results This patient has no known results.
--- NOTE | 2020-03-16 09:23 | RAD REPORT ---
EXAM DESCRIPTION: RAD - Chest Pa And Lat (2 Views) - 03/16/2020 9:10 am CLINICAL HISTORY: COUGH COMPARISON: Portable August 2019, two view chest November 2016 TECHNIQUE: Frontal and lateral views of the chest were obtained. FINDINGS: The lungs are clear. Retrocardiac left base markings not clearly different from comparison . Heart size is normal and central vasculature is within normal limits. No pleural effusion or pneu mothorax seen. No acute bony finding noted. No aortic abnormality. IMPRESSION: No acute cardiopulmonary process.
--- NOTE | 2020-03-16 09:30 | EDPHYS ---
Physician Documentation [facility] Name: Cameron Presley III Age: 44 yrs Sex: Male : 1975 Arrival Date: 03/16/2020 Time: 07:32 Bed 17 Private MD: ED Physician Wilmer Sow HPI: 03/16 08:43 This 44 yrs old Black Male presents to ER via Ambulatory with complaints of Cough, kb Runny Nose. 08:43 The patient or guardian reports cough, that is intermittent, described as mild, with no kb sputum, flu symptoms, myalgias. Onset: The symptoms/episode began/occurred 7 day(s) ago. Severity of symptoms: At their worst the symptoms were moderate, in the emergency department the symptoms have improved. Modifying factors: The symptoms are alleviated by nothing, the symptoms are aggravated by nothing. Associated signs and symptoms: Pertinent positives: rhinorrhea, Pertinent negatives: chest pain, diarrhea, ear ache, fever, nausea, sore throat, vomiting. The patient has not experienced similar symptoms in the past. The patient has not recently seen a physician. Pt reports he has had cough and runny nose for 7 days. States he had body aches over the weekend and loss of taste, but those symptoms have resolved. Denies shortness of breath, fever or sick contacts. Came today because "they symptoms are taking too long to go away so I need to make sure I don't have it because I have kids.". Historical: - Allergies: 07:47 Iodine; bp - PMHx: 07:47 Migraines; bp - Immunization history:: Adult Immunizations unknown. - Social history:: Smoking status: Patient reports the use of cigarette tobacco products, unknown amount. ROS: 08:43 Constitutional: Negative for fever, chills, and weight loss, Neck: Negative for injury, kb pain, and swelling, Cardiovascular: Negative for chest pain, palpitations, and edema, Abdomen/GI: Negative for abdominal pain, nausea, vomiting, diarrhea, and constipation, Back: Negative for injury and pain, MS/Extremity: Negative for injury and deformity, Skin: Negative for injury, rash, and discoloration, Neuro: Negative for headache, weakness, numbness, tingling, and seizure. 08:43 Constitutional: Positive for body aches. 08:43 ENT: Positive for rhinorrhea. 08:43 Respiratory: Positive for cough, Negative for dyspnea on exertion, hemoptysis, orthopnea, pleurisy, shortness of breath, sputum production, wheezing. Exam: 08:43 Constitutional: This is a well developed, well nourished patient who is awake, alert, kb and in no acute distress. Head/Face: Normocephalic, atraumatic. ENT: Nares patent. No nasal discharge, no septal abnormalities noted. Tympanic membranes are normal and external auditory canals are clear. Oropharynx with no redness, swelling, or masses, exudates, or evidence of obstruction, uvula midline. Mucous membranes moist. Neck: Trachea midline, no thyromegaly or masses palpated, and no cervical lymphadenopathy. Supple, full range of motion without nuchal rigidity, or vertebral point tenderness. No Meningismus. Chest/axilla: Normal chest wall appearance and motion. Nontender with no deformity. No lesions are appreciated. Cardiovascular: Regular rate and rhythm with a normal S1 and S2. No gallops, murmurs, or rubs. Normal PMI, no JVD. No pulse deficits. Respiratory: Lungs have equal breath sounds bilaterally, clear to auscultation and percussion. No rales, rhonchi or wheezes noted. No increased work of breathing, no retractions or nasal flaring. Abdomen/GI: Soft, non-tender, with normal bowel sounds. No distension or tympany. No guarding or rebound. No evidence of tenderness throughout. Skin: Warm, dry with normal turgor. Normal color with no rashes, no lesions, and no evidence of cellulitis. MS/ Extremity: Pulses equal, no cyanosis. Neurovascular intact. Full, normal range of motion. Neuro: Awake and alert, GCS 15, oriented to person, place, time, and situation. Cranial nerves II-XII grossly intact. Motor strength 5/5 in all extremities. Sensory grossly intact. Cerebellar exam normal. Normal gait. Vital Signs: 07:52 BP 165 / 86; Pulse 89; Resp 16 S; Pulse Ox 99% on R/A; Weight 111.13 kg; Height 5 ft. iw 10 in. (177.80 cm); 08:58 BP 142 / 98; Pulse 80; Resp 16; Pulse Ox 97% ; bp 09:38 BP 153 / 99; Pulse 75; Resp 17; Temp 98.9; Pulse Ox 99% ; bp 07:52 Body Mass Index 35.15 (111.13 kg, 177.80 cm) iw MDM: 07:47 Patient medically screened. kb 08:41 Data reviewed: vital signs, nurses notes. Data interpreted: Pulse oximetry: on room air kb is 99 %. Interpretation: normal. 09:29 Counseling: I had a detailed discussion with the patient and/or guardian regarding: the kb historical points, exam findings, and any diagnostic results supporting the discharge/admit diagnosis, lab results, radiology results, the need for outpatient follow up, a family practitioner, to return to the emergency department if symptoms worsen or persist or if there are any questions or concerns that arise at home. 03/16 07:57 Order name: Flu; Complete Time: 09:12 kb 03/16 08:05 Order name: COVID-19 kb 03/16 07:57 Order name: Chest Pa And Lat (2 Views) XRAY; Complete Time: 09:29 kb Administered Medications: No medications were administered Disposition: 10:53 Co-signature as Attending Physician, Wilmer Sow MD. rn Disposition: 03/16/20 09:29 Discharged to Home. Impression: Acute upper respiratory infection, unspecified. - Condition is Stable. - Discharge Instructions: Upper Respiratory Infection, Adult, [id number], Viral Respiratory Infection, [id number]. - Medication Reconciliation Form, Thank You Letter, Antibiotic Education, Prescription Opioid Use, Work release form form. - Follow up: Emergency Department; When: As needed; Reason: Worsening of condition. Follow up: Private Physician; When: 2 - 3 days; Reason: Recheck today's complaints, Continuance of care, Re-evaluation by your physician. Signatures: Dispatcher [employer]DAK Dipti Verdugo, SHREDDING SPECIALIST-C SHREDDING SPECIALIST-Wilmer Wise MD MD rn Peltier, Brian, RN RN bp Corrections: (The following items were deleted from the chart) 09:45 09:29 03/16/2020 09:29 Discharged to Home. Impression: Acute upper respiratory bp infection, unspecified. Condition is Stable. Forms are Medication Reconciliation Form, Thank You Letter, Antibiotic Education, Prescription Opioid Use. Follow up: Emergency Department; When: As needed; Reason: Worsening of condition. Follow up: Private Physician; When: 2 - 3 days; Reason: Recheck today's complaints, Continuance of care, Re-evaluation by your physician. kb
--- NOTE | 2020-03-16 09:30 | ER ---
Nurse's Notes [facility] Name: Cameron Presley III Age: 44 yrs Sex: Male : 1975 Arrival Date: 03/16/2020 Time: 07:32 Bed 17 Private MD: Diagnosis: Acute upper respiratory infection, unspecified Presentation: 03/16 07:52 Chief complaint: Patient states: cough, runny nose since Sunday, last his sense iw taste on and Sunday but has resolved, denies fever and SOB. Coronavirus screen: Patient reports a cough. Patient denies shortness of breath or difficulty breathing. Patient denies measured and/or subjective temperature greater than 100.4F prior to today's visit. Patient denies travel on a cruise ship or to a country the [facility] currently lists as an affected area. Patient denies contact with known and/or suspected case of COVID-19. Ebola Screen: Patient negative for fever greater than or equal to 101.5 degrees Fahrenheit, and additional compatible Ebola Virus Disease symptoms Patient denies exposure to infectious person. Patient denies travel to an Ebola-affected area in the 21 days before illness onset. No symptoms or risks identified at this time. Initial Sepsis Screen: Does the patient meet any 2 criteria? No. Patient's initial sepsis screen is negative. Does the patient have a suspected source of infection? No. Patient's initial sepsis screen is negative. Risk Assessment: Do you want to hurt yourself or someone else? Patient reports no desire to harm self or others. Onset of symptoms was March 10, 2020. 07:52 Method Of Arrival: Ambulatory iw 07:52 Acuity: BOBBY 4 iw Triage Assessment: 07:49 General: Appears in no apparent distress. comfortable, obese, Behavior is calm, bp cooperative, appropriate for age. Pain: Denies pain. EENT: Reports nasal congestion. Neuro: Level of Consciousness is awake, alert, obeys commands, Oriented to person, place, time, situation, Appropriate for age. Cardiovascular: No deficits noted. Respiratory: No deficits noted. GI: No signs and/or symptoms were reported involving the gastrointestinal system. : No signs and/or symptoms were reported regarding the genitourinary system. Derm: No deficits noted. Musculoskeletal: No deficits noted. Historical: - Allergies: 07:47 Iodine; bp - PMHx: 07:47 Migraines; bp - Immunization history:: Adult Immunizations unknown. - Social history:: Smoking status: Patient reports the use of cigarette tobacco products, unknown amount. Screenin:48 Abuse screen: Denies threats or abuse. Denies injuries from another. Nutritional bp screening: No deficits noted. Tuberculosis screening: No symptoms or risk factors identified. Fall Risk None identified. Assessment: 07:48 General: SEE TRIAGE NOTE. Pain: Denies pain. bp 08:59 Reassessment: PT TO RADIOLOGY. bp 09:38 Reassessment: PT D/C HOME AMBULATORY, DX WITH UNKNOWN URI. PT URGED TO REMAIN ON HOME bp QUARANTINE UNTIL NEGATIVE COVID REPORTED. Vital Signs: 07:52 BP 165 / 86; Pulse 89; Resp 16 S; Pulse Ox 99% on R/A; Weight 111.13 kg; Height 5 ft. iw 10 in. (177.80 cm); 08:58 BP 142 / 98; Pulse 80; Resp 16; Pulse Ox 97% ; bp 09:38 BP 153 / 99; Pulse 75; Resp 17; Temp 98.9; Pulse Ox 99% ; bp 07:52 Body Mass Index 35.15 (111.13 kg, 177.80 cm) iw ED Course: 07:32 Patient arrived in ED. ag5 07:34 Dipti Verdu[facility] F[facility]-C [facility]. kb 07:34 Wilmer Sow MD is Attending Physician. kb 07:46 Ronni Espinoza, DAVID is Primary Nurse. bp 07:48 Arm band placed on. bp 07:48 Patient has correct armband on for positive identification. Bed in low position. Call bp light in reach. Side rails up X2. 07:54 Triage completed. iw 09:10 Chest Pa And Lat (2 Views) XRAY In Process Unspecified. EDMS 09:38 No provider procedures requiring assistance completed. Patient did not have IV access bp during this emergency room visit. Administered Medications: No medications were administered Outcome: 09:29 Discharge ordered by . kb 09:38 Discharged to home ambulatory. bp 09:38 Condition: stable 09:38 Discharge instructions given to patient, Instructed on discharge instructions, follow up and referral plans. Demonstrated understanding of instructions, follow-up care. 09:45 Patient left the ED. bp Addendum: 03/18/2020 15:35 Addendum: Other pt notified of negative COVID-19 swab resutls. Pt advised to remain in d m5 isolation until symptoms free for 3 days and to return to the ED for worsening symptoms. Signatures: Dispatcher [employer] Dipti Mansfield, ENROLLMENT REPRESENTATIVE-C ENROLLMENT REPRESENTATIVE-Anyi Brandon, DAVID HERNANDEZ dm5 Taylor Smith, RN DAVID iw Ronni Espinoza, RN RN Maggi Mojica [facility]
[2020-03-16 10:28] VITALS: BP 153/99; TEMP 98.9; O2SAT 99
== END 2020-03-16 09:45 | disposition home or self-care (01) ==
LOC: ER 07:30
DX: J06.9 Acute upper respiratory infection, unspecified (principal); Z20.828 Contact with and (suspected) exposure to other viral communicable diseases; Z72.0 Tobacco use; Z91.048 Other nonmedicinal substance allergy status
CPT/HCPCS: 87804 ×2; 71046; 99283; U0001

== ENCOUNTER 2020-06-18 01:28 | Emergency (ER) | payer SELFPAY ==
--- OUTSIDE RECORDS SUMMARY | 2020-06-18 01:30 | XMS REPORT | Continuity of Care Document ---
:1975 Author Organization [facility] t Address [address] [place] [address] Care Team Providers Name Role Phone Unavailable [...] No Na Singh [address] 12-18 [facility] to [facility] 00 :00 affected l area Outpati ent Clinics Duexis Duexis 2017- No Na Singh [address] 3- 0526 [facility] Qudexy XR Qudexy XR Yes Na Singh [address] [facility] Cambia Cambia Yes Na Singh not [facility] Indomethaci Indomethaci Yes Na Singh [address] [facility] with food [facility] - or milk [facility] Procedures This patient has no known procedures. Encounters Start End Encounter Admission Attending Care Care Encounter Source Date/Time Date/Time Type Type Clinicians Facility Department ID 2017-12-25 2017-12-25 Outpatient Meera Perez [id number] [facility] 14:15:00 14:15:00 [facility] 2017-12-18 2017-12-18 Outpatient Meera Perez [id number] [facility] [address] 11:30:00 11:30:00 [facility] ent Clinics Results This patient has no known results.
[2020-06-18] MEDS ORDERED: LIDOCAINE 1% W/EPI 1:100,000 MDV 20 ML VIAL ONE (02:30)
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
[2020-06-18] MEDS ORDERED: TETANUS & DIPHTHERIA TOX,ADULT 0.5 ML VIAL ONE (03:16)
[2020-06-18] MEDS ORDERED: CEPHALEXIN 250 MG CAP ONE (03:16)
[2020-06-18 03:30] VITALS: BP 145/70; TEMP 98; O2SAT 100
== END 2020-06-18 03:11 | disposition home or self-care (01) ==
LOC: ER 01:28
PROC: 0CQ0XZZ Repair Upper Lip, External Approach (ICD-10-PCS; principal; 2020-06-18)
DX: S01.511A Laceration without foreign body of lip, initial encounter (principal); W45.8XXA Other foreign body or object entering through skin, initial encounter; Y93.89 Activity, other specified; Y92.009 Unspecified place in unspecified non-institutional (private) residence as the place of occurrence of the external cause; F17.210 Nicotine dependence, cigarettes, uncomplicated; Z23 Encounter for immunization; Z91.048 Other nonmedicinal substance allergy status
CPT/HCPCS: 90471; 90714; 99284

== ENCOUNTER 2020-06-28 13:55 | Emergency (ER) | payer SELFPAY ==
--- NOTE | 2020-06-28 14:11 | EDPHYS ---
Physician Documentation [facility] Name: Cameron Presley III Age: 45 yrs Sex: Male : 1975 Arrival Date: 06/28/2020 Time: 13:57 Bed 25 Private MD: ED Physician Wilmer Sow HPI: 06/28 14:07 This 45 yrs old Black Male presents to ER via Ambulatory with complaints of Suture kb Removal. 14:07 The patient has sutures on the upper lip. Previous treatment: The patient was initially kb treated on June 18, 2020, the care was rendered at [facility]. Sutures/case progress: The patient has no c/o's. The wound is well-healing with no redness, swelling, discharge, or dehiscence reported. The patient has not experienced similar symptoms in the past. The patient has not recently seen a physician. Historical: - Allergies: 14:06 Iodine; ll1 - PMHx: 14:06 Migraines; ll1 - PSHx: 14:06 None; ll1 - Immunization history:: Last tetanus immunization: up to date Flu vaccine status is unknown. - Social history:: Smoking status: Patient denies any tobacco usage or history of. ROS: 14:07 Constitutional: Negative for fever, chills, and weight loss, Cardiovascular: Negative kb for chest pain, palpitations, and edema, Respiratory: Negative for shortness of breath, cough, wheezing, and pleuritic chest pain, Abdomen/GI: Negative for abdominal pain, nausea, vomiting, diarrhea, and constipation, Back: Negative for injury and pain, MS/Extremity: Negative for injury and deformity, Neuro: Negative for headache, weakness, numbness, tingling, and seizure. 14:07 Skin: Positive for of the upper lip, sutures in place. Exam: 14:07 Constitutional: This is a well developed, well nourished patient who is awake, alert, kb and in no acute distress. Head/Face: Normocephalic, atraumatic. Chest/axilla: Normal chest wall appearance and motion. Nontender with no deformity. No lesions are appreciated. Cardiovascular: Regular rate and rhythm with a normal S1 and S2. No gallops, murmurs, or rubs. Normal PMI, no JVD. No pulse deficits. Respiratory: Lungs have equal breath sounds bilaterally, clear to auscultation and percussion. No rales, rhonchi or wheezes noted. No increased work of breathing, no retractions or nasal flaring. Abdomen/GI: Soft, non-tender, with normal bowel sounds. No distension or tympany. No guarding or rebound. No evidence of tenderness throughout. MS/ Extremity: Pulses equal, no cyanosis. Neurovascular intact. Full, normal range of motion. Neuro: Awake and alert, GCS 15, oriented to person, place, time, and situation. Cranial nerves II-XII grossly intact. Motor strength 5/5 in all extremities. Sensory grossly intact. Cerebellar exam normal. Normal gait. 14:07 Skin: Wound recheck: Suture laceration closure: the wound is healing well, the edges are well approximated, no evidence of dehiscence, no drainage, no erythema, no swelling. Vital Signs: 14:05 BP 161 / 88; Pulse 74; Resp 18; Temp 98.8; Pulse Ox 98% ; Pain 0/10; ll1 Procedures: 14:09 Suture/Staple removal: Removed 5 sutures, from upper lip, site appears well healed, kb Patient tolerated well. MDM: 14:05 Patient medically screened. kb 14:07 Data reviewed: vital signs, nurses notes. Data interpreted: Pulse oximetry: on room air kb is 98 %. Interpretation: normal. Counseling: I had a detailed discussion with the patient and/or guardian regarding: the historical points, exam findings, and any diagnostic results supporting the discharge/admit diagnosis, the need for outpatient follow up, a family practitioner, to return to the emergency department if symptoms worsen or persist or if there are any questions or concerns that arise at home. Administered Medications: No medications were administered Disposition: 17:57 Co-signature as Attending Physician, Wilmer Sow MD. rn Disposition: 06/28/20 14:09 Discharged to Home. Impression: Encounter for removal of sutures. - Condition is Stable. - Discharge Instructions: Suture Removal, Care After. - Medication Reconciliation Form, Thank You Letter, Antibiotic Education, Prescription Opioid Use, Work release form form. - Follow up: Emergency Department; When: As needed; Reason: Worsening of condition. Follow up: Private Physician; When: 2 - 3 days; Reason: Recheck today's complaints, Continuance of care, Re-evaluation by your physician. Signatures: Dipti Verdugo, [employer]KE LINING FINISHER HELPER-C [employer]BE[employer] BRAKE LINING FINISHER HELPER-Ckb Wilmer Sow MD MD rn Luis Mcelroy RN RN ll1 Corrections: (The following items were deleted from the chart) 14:22 14:09 06/28/2020 14:09 Discharged to Home. Impression: Encounter for removal of ll1 sutures. Condition is Stable. Forms are Medication Reconciliation Form, Thank You Letter, Antibiotic Education, Prescription Opioid Use. Follow up: Emergency Department; When: As needed; Reason: Worsening of condition. Follow up: Private Physician; When: 2 - 3 days; Reason: Recheck today's complaints, Continuance of care, Re-evaluation by your physician. kb
--- NOTE | 2020-06-28 14:11 | ER ---
Nurse's Notes [facility] Name: Cameron Presley III Age: 45 yrs Sex: Male : 1975 Arrival Date: 06/28/2020 Time: 13:57 Bed 25 Private MD: Diagnosis: Encounter for removal of sutures Presentation: 06/28 14:05 Chief complaint: Patient states: Suture removal from upper lip. Placed here 06/18. No ll1 fever, redness, or drainage. Coronavirus screen: Client denies travel out of the [place] in the last 14 days. At this time, the client does not indicate any symptoms associated with coronavirus-19. Ebola Screen: Patient denies travel to an Ebola-affected area in the 21 days before illness onset. Initial Sepsis Screen: Does the patient meet any 2 criteria? No. Patient's initial sepsis screen is negative. Risk Assessment: Do you want to hurt yourself or someone else? Patient reports no desire to harm self or others. Onset of symptoms was May 18, 2020. 14:05 Method Of Arrival: Ambulatory ll1 14:05 Acuity: BOBBY 4 ll1 16:49 Initial Sepsis Screen: Does the patient have a suspected source of infection? Yes: Skin ll1 breakdown/wound. Triage Assessment: 14:20 General: Appears in no apparent distress. Behavior is calm, cooperative. ll1 Historical: - Allergies: 14:06 Iodine; ll1 - PMHx: 14:06 Migraines; ll1 - PSHx: 14:06 None; ll1 - Immunization history:: Last tetanus immunization: up to date Flu vaccine status is unknown. - Social history:: Smoking status: Patient denies any tobacco usage or history of. Screenin:15 Abuse screen: Denies threats or abuse. Nutritional screening: No deficits noted. ll1 Tuberculosis screening: No symptoms or risk factors identified. Fall Risk None identified. Total Oconnor Fall Scale indicates No Risk (0-24 pts). Assessment: 14:10 General: Appears in no apparent distress. Behavior is calm, cooperative. Pain: Denies ll1 pain. Neuro: No deficits noted. Cardiovascular: No deficits noted. Respiratory: No deficits noted. Derm: Reports need stitches removed from upper lip. No redness or fever. Vital Signs: 14:05 BP 161 / 88; Pulse 74; Resp 18; Temp 98.8; Pulse Ox 98% ; Pain 0/10; ll1 ED Course: 13:57 Patient arrived in ED. mr 14:04 Dipti Verdugo FNP-C is [facility]. kb 14:04 Wilmer Sow MD is Attending Physician. kb 14:06 Triage completed. ll1 14:07 Arm band placed on Patient placed in an exam room, on a stretcher. ll1 14:15 Patient has correct armband on for positive identification. Bed in low position. Call ll1 light in reach. Side rails up X 1. 14:22 No provider procedures requiring assistance completed. Patient did not have IV access ll1 during this emergency room visit. Administered Medications: No medications were administered Outcome: 14:09 Discharge ordered by . kb 14:22 Patient left the ED. ll1 14:22 Discharged to home ambulatory. ll1 14:22 Condition: stable 14:22 Discharge instructions given to patient, Instructed on discharge instructions, follow up and referral plans. wound care, Demonstrated understanding of instructions, follow-up care, wound care. Signatures: Dipti Verdugo FNP-C FNP-Sia Tirado Luis Mcelroy, RN RN ll1
[2020-06-28 14:51] VITALS: BP 161/88; TEMP 98.8; O2SAT 98
--- OUTSIDE RECORDS SUMMARY | 2020-07-01 07:37 | XMS REPORT | Continuity of Care Document ---
:1975 Author Organization [facility] t Address [address] [place] [address] Care Team Providers Name Role Phone Unavailable [...] Date Date Medication? Clinician (SIG) Name Name Pennsaid Pennsaid 2017- No Na Singh [address] 12[facility]18 [facility] 00 :00 [facility] Duexis Duexis 2018- No Na Singh [address] 12[facility]18 [facility]00 [facility] Qudexy XR Qudexy XR Yes Na Singh [address] [facility] [place]ia [place]ia Yes Na Singh not [facility] Indomethaci Indomethaci Yes Na Singh [address] [facility] with food [facility] - or milk [facility] Procedures This patient has no known procedures. Encounters Start End Encounter Admission Attending Care Care Encounter Source Date/Time Date/Time Type Type Clinicians Facility Department ID 2017-12-25 2017-12-25 Outpatient Meera Perez [id number] [facility] 14:15:00 14:15:00 [facility] 2017-12-18 2017-12-18 Outpatient Meera Perez [id number] [facility] 11:30:00 11:30:00 [facility] [facility] ent Clinics Results This patient has no known results.
== END 2020-06-28 14:22 | disposition home or self-care (01) ==
LOC: ER 13:55
DX: Z48.02 Encounter for removal of sutures (principal)
CPT/HCPCS: 99281

== ENCOUNTER 2020-08-03 08:00 | Emergency (ER) | payer SELFPAY ==
--- OUTSIDE RECORDS SUMMARY | 2020-08-03 08:20 | XMS REPORT | Continuity of Care Document ---
:1975 Author Organization [facility] t Address [address] [place] [address] Care Team Providers Name Role Phone Unavailable [...] - 00:00: 00:00 [facility] 00 :[facility] Qudexy XR Qudexy XR Yes Na Singh [address] [facility] [place] Yes Na Singh not [facility] Indomethaci Indomethaci Yes Na Singh [address] [facility] with food [facility] - or milk [place] [facility] Procedures This patient has no known procedures. Encounters Start End Encounter Admission Attending Care Care Encounter Source Date/Time Date/Time Type Type Clinicians Facility Department ID 2017-12-25 2017-12-25 Outpatient Meera Perez [id number] [facility] 14:15:00 14:15:00 [facility] ent [facility] 2017-12-18 2017-12-18 Outpatient Meera Perez [id number] [facility] 11:30:00 11:30:00 [facility] ent Clinics Results This patient has no known results.
[2020-08-03] MEDS ORDERED: HYDROCODONE/APAP 10/325 TAB ONE ×2 (08:49→08:50)
[2020-08-03] MEDS ORDERED: KETOROLAC 30 MG/ML INJ ONE (08:50)
--- NOTE | 2020-08-03 08:57 | RAD REPORT ---
EXAM DESCRIPTION: RAD - Knee Left 3 View - 08/03/2020 8:49 am CLINICAL HISTORY: PAIN COMPARISON: No comparisons FINDINGS: Moderate suprapatellar joint effusion is evident. There is no evidence of fracture, disloc ation or aggressive marrow lesion.
--- NOTE | 2020-08-03 09:03 | ER ---
Nurse's Notes [facility] Name: Cameron Presley III Age: 45 yrs Sex: Male : 1975 Arrival Date: 08/03/2020 Time: 08:02 Bed 20 Private MD: Diagnosis: Effusion, left knee;Pain in left knee Presentation: 08/03 08:04 Chief complaint: Patient states: left knee pain x 2 week ago and swelling to left knee aa5 that began 1 week ago. Pt denies known injury. Pt states "It hurts to put pressure on it". 08:04 Coronavirus screen: Client denies travel out of the [place] in the last 14 days. At this aa5 time, the client does not indicate any symptoms associated with coronavirus-19. Ebola Screen: Patient negative for fever greater than or equal to 101.5 degrees Fahrenheit, and additional compatible Ebola Virus Disease symptoms. Risk Assessment: Do you want to hurt yourself or someone else? Patient reports no desire to harm self or others. Onset of symptoms was 2019. 08:04 Acuity: BOBBY 4 aa5 08:04 Method Of Arrival: Ambulatory aa5 08:49 Initial Sepsis Screen: Does the patient meet any 2 criteria? No. Patient's initial ll2 sepsis screen is negative. Does the patient have a suspected source of infection? No. Patient's initial sepsis screen is negative. Historical: - Allergies: 08:16 Iodine; aa5 - PMHx: 08:16 Migraines; aa5 - PSHx: 08:16 None; aa5 - Immunization history:: Adult Immunizations unknown. - Social history:: Smoking status: Patient reports the use of cigarette tobacco products, smokes one pack cigarettes per day. - Family history:: not pertinent. Screenin:22 Abuse screen: Denies threats or abuse. Nutritional screening: No deficits noted. ll2 Tuberculosis screening: No symptoms or risk factors identified. Fall Risk None identified. Assessment: 08:18 Reassessment: provider at bedside at this time. tw2 08:20 General: Appears in no apparent distress. Behavior is calm, cooperative, appropriate ll2 for age. Pain: Complains of pain in left knee Pain currently is 4 out of 10 on a pain scale. at worst was 8 out of 10 on a pain scale. Pain began gradually. Neuro: Level of Consciousness is awake, alert, obeys commands, Oriented to person, place, time, situation. Cardiovascular: Patient's skin is warm and dry. Respiratory: Airway is patent Respiratory effort is even, unlabored, Respiratory pattern is regular, symmetrical. GI: No signs and/or symptoms were reported involving the gastrointestinal system. : No signs and/or symptoms were reported regarding the genitourinary system. EENT: No signs and/or symptoms were reported regarding the EENT system. Derm: Skin is intact, is healthy with good turgor, Skin is dry, Skin is normal, Skin temperature is warm. Musculoskeletal: Circulation, motion, and sensation intact. Range of motion: limited in left knee Swelling present in left knee. 09:15 Reassessment: Patient and/or family updated on plan of care and expected duration. Pain ll2 level reassessed. Patient is alert, oriented x 3, equal unlabored respirations, skin warm/dry/pink. pt reports pain is decreasede. 09:25 Reassessment: pt refused crutches at this, knee immobilizer placed, pt reports ll2 improvement of symptoms at this time. Vital Signs: 08:04 Temp 98.1(O); Weight 108.86 kg (R); Height 5 ft. 10 in. (177.80 cm) (R); Pain 8/10; aa5 08:22 BP 162 / 95; Pulse 82; Resp 18; Temp 98.3; Pulse Ox 95% on R/A; ll2 08:04 Body Mass Index 34.44 (108.86 kg, 177.80 cm) aa5 ED Course: 08:02 Patient arrived in ED. ag5 08:04 Arm band placed on Patient placed in an exam room, on a stretcher. aa5 08:04 Patient has correct armband on for positive identification. Bed in low position. Call ll2 light in reach. Side rails up X 1. Warm blanket given. Pulse ox on. NIBP on. 08:04 Bed in low position. Call light in reach. Pulse ox on. NIBP on. ll2 08:08 Joe Marcelino MD is Attending Physician. [facility] 08:12 Tawana Keita RN is Primary Nurse. ll2 08:16 Triage completed. aa5 08:48 Knee immobilizer applied on left knee. ll2 08:49 Knee Left 3 View XRAY In Process Unspecified. EDNE 09:02 Kenroy Loyd MD is Referral Physician. [facility] 09:25 No provider procedures requiring assistance completed. Patient did not have IV access ll2 during this emergency room visit. Administered Medications: 08:48 Drug: TORadol 60 mg Route: IM; Site: left gluteus; ll2 09:14 Follow up: Response: No adverse reaction; Pain is decreased ll2 08:48 Drug: [place] 10 mg-325 mg 1 tabs Route: PO; ll2 09:15 Follow up: Response: No adverse reaction; Pain is decreased ll2 Outcome: 09:03 Discharge ordered by MD. [facility] 09:25 Discharged to home ambulatory. ll2 09:25 Condition: stable 09:25 Discharge instructions given to patient, Instructed on discharge instructions, follow up and referral plans. medication usage, Demonstrated understanding of instructions, follow-up care, medications, Prescriptions given X 2. 09:30 Patient left the ED. ll2 Signatures: Dispatcher [employer] EDNE Joe Marcelino MD MD cha Calderon, Audri, RN RN [email or web address] Ethel Mendez RN RN [email or web address] Norma Benitez 5 Maggi Mojica 5 Tawana Keita, DAVID RN ll2 Corrections: (The following items were deleted from the chart) 08:49 08:48 Patient has correct armband on for positive identification. Bed in low position. ll2 Call light in reach. Side rails up X 1. 5 08:49 08:48 Warm blanket given. 5 ll2 08:49 08:48 Pulse ox on. NIBP on. 5 ll2 09:43 08:48 Crutch training done. Knee immobilizer applied on left knee. 5 ll2 09:45 09:44 Patient left the ED. ll2 ll2
--- NOTE | 2020-08-03 09:04 | EDPHYS ---
Physician Documentation [facility] Name: Cameron Presley III Age: 45 yrs Sex: Male : 1975 Arrival Date: 08/03/2020 Time: 08:02 Bed 20 Private MD: EMILIA Physician Joe Marcelino HPI: 08/03 08:57 This 45 yrs old Black Male presents to ER via Ambulatory with complaints of Knee Pain, jason Knee Swelling. 08:57 The patient presents with decreased range of motion, pain, that is acute. The jason complaints affect the left knee. Context: The problem was sustained at work, resulted from a chronic condition, a mis-step, a penetrating injury, playing sports, the patient tripping, an unknown cause. Onset: The symptoms/episode began/occurred 3 week(s) ago. Modifying factors: The symptoms are alleviated by elevating leg, remaining still, the symptoms are aggravated by movement, weight bearing, bending knee. Associated signs and symptoms: The patient has no apparent associated signs or symptoms. Treatment prior to arrival includes: no previous treatment. Severity of symptoms: At their worst the symptoms were moderate, yesterday. The patient has not experienced similar symptoms in the past. Historical: - Allergies: 08:16 Iodine; aa5 - PMHx: 08:16 Migraines; aa5 - PSHx: 08:16 None; aa5 - Immunization history:: Adult Immunizations unknown. - Social history:: Smoking status: Patient reports the use of cigarette tobacco products, smokes one pack cigarettes per day. - Family history:: not pertinent. ROS: 08:57 Constitutional: Negative for fever, chills, and weight loss, Eyes: Negative for injury, jason pain, redness, and discharge, ENT: Negative for injury, pain, and discharge, Neck: Negative for injury, pain, and swelling, Cardiovascular: Negative for chest pain, palpitations, and edema, Respiratory: Negative for shortness of breath, cough, wheezing, and pleuritic chest pain, Abdomen/GI: Negative for abdominal pain, nausea, vomiting, diarrhea, and constipation, Back: Negative for injury and pain, : Negative for injury, bleeding, discharge, and swelling, Skin: Negative for injury, rash, and discoloration, Psych: Negative for depression, anxiety, suicide ideation, homicidal ideation, and hallucinations, Allergy/Immunology: Negative for hives, rash, and allergies, Endocrine: Negative for neck swelling, polydipsia, polyuria, polyphagia, and marked weight changes. 08:57 MS/extremity: Positive for decreased range of motion, pain, swelling, of the left knee. Exam: 08:57 Constitutional: This is a well developed, well nourished patient who is awake, alert, jason and in no acute distress. Head/Face: Normocephalic, atraumatic. Eyes: Pupils equal round and reactive to light, extra-ocular motions intact. Lids and lashes normal. Conjunctiva and sclera are non-icteric and not injected. Cornea within normal limits. Periorbital areas with no swelling, redness, or edema. ENT: Nares patent. No nasal discharge, no septal abnormalities noted. Tympanic membranes are normal and external auditory canals are clear. Oropharynx with no redness, swelling, or masses, exudates, or evidence of obstruction, uvula midline. Mucous membranes moist. Neck: Trachea midline, no thyromegaly or masses palpated, and no cervical lymphadenopathy. Supple, full range of motion without nuchal rigidity, or vertebral point tenderness. No Meningismus. Chest/axilla: Normal chest wall appearance and motion. Nontender with no deformity. No lesions are appreciated. Cardiovascular: Regular rate and rhythm with a normal S1 and S2. No gallops, murmurs, or rubs. Normal PMI, no JVD. No pulse deficits. Respiratory: Lungs have equal breath sounds bilaterally, clear to auscultation and percussion. No rales, rhonchi or wheezes noted. No increased work of breathing, no retractions or nasal flaring. Abdomen/GI: Soft, non-tender, with normal bowel sounds. No distension or tympany. No guarding or rebound. No evidence of tenderness throughout. Back: No spinal tenderness. No costovertebral tenderness. Full range of motion. Male : Normal genitalia with no discharge or lesions. Skin: Warm, dry with normal turgor. Normal color with no rashes, no lesions, and no evidence of cellulitis. Neuro: Awake and alert, GCS 15, oriented to person, place, time, and situation. Cranial nerves II-XII grossly intact. Motor strength 5/5 in all extremities. Sensory grossly intact. Cerebellar exam normal. Normal gait. Psych: Awake, alert, with orientation to person, place and time. Behavior, mood, and affect are within normal limits. 08:57 Musculoskeletal/extremity: Extremities: noted in the left knee: decreased ROM, pain, swelling, tenderness, ROM: full passive range of motion, limited active range of motion, Circulation is intact in all extremities. Sensation intact. Compartment Syndrome exam of affected extremity: is normal. Joints: All joints are normal except effusion, painful range of motion, swelling, DVT Exam: negative Homans' sign noted on exam, no appreciated bluish discoloration, no erythema, no increased warmth, pain, swelling, tenderness. Vital Signs: 08:04 Temp 98.1(O); Weight 108.86 kg (R); Height 5 ft. 10 in. (177.80 cm) (R); Pain 8/10; aa5 08:22 BP 162 / 95; Pulse 82; Resp 18; Temp 98.3; Pulse Ox 95% on R/A; ll2 08:04 Body Mass Index 34.44 (108.86 kg, 177.80 cm) aa5 MDM: 08:08 Patient medically screened[address] [facility] 09:01 Differential diagnosis: closed fracture, contusion, tendonitis. Data reviewed: vital jason signs, nurses notes, radiologic studies, plain films. Data interpreted: environmental monitoring technician: not applicable for this patient encounter. rate is 82 beats/min, rhythm is regular, Pulse oximetry: on room air is 95 %. Test interpretation: by ED physician or midlevel provider: plain radiologic studies. Counseling: I had a detailed discussion with the patient and/or guardian regarding: the historical points, exam findings, and any diagnostic results supporting the discharge/admit diagnosis, radiology results, the need for outpatient follow up, for definitive care, a orthopedic surgeon. 08/03 08:26 Order name: Knee Left [address] [facility] 08/03 08:26 Order name: Ice pack; Complete Time: 08:31 jason 08/03 08:26 Order name: Knee Immobilizer; Complete Time: 08:48 jason 08/03 08:26 Order name: Crutches; Complete Time: 08:48 jason Administered Medications: 08:48 Drug: TORadol 60 mg Route: IM; Site: left gluteus; ll2 09:14 Follow up: Response: No adverse reaction; Pain is decreased ll2 08:48 Drug: [employer] 10 mg-325 mg 1 tabs Route: PO; ll2 09:15 Follow up: Response: No adverse reaction; Pain is decreased ll2 Disposition: 08/03/20 09:03 Discharged to Home. Impression: Effusion, left knee, Pain in left knee. - Condition is Stable. - Discharge Instructions: Joint Pain, How to Use a Knee Brace, Knee Effusion, Knee Pain, Cryotherapy, [id number], Cryotherapy. - Prescriptions for Tylenol- Codeine #3 300-30 mg Oral Tablet - take 2 tablets by ORAL route every 6 hours As needed; 24 tablet. Diclofenac Sodium 75 mg Oral Tablet, Delayed Release (E.C.) - take 1 tablet by ORAL route 2 times per day; 20 tablet. - Medication Reconciliation Form, Thank You Letter, Antibiotic Education, Prescription Opioid Use, Work release form form. - Follow up: Private Physician; When: 2 - 3 days; Reason: Recheck today's complaints, Continuance of care, Re-evaluation by your physician. Follow up: Kenroy Loyd MD; When: 2 - 3 days; Reason: Recheck today's complaints, Re-evaluation by your physician. - Problem is new. - Symptoms have improved. Signatures: Dispatcher [employer] EDMS Joe Marcelino MD MD cha Calderon, Audri, RN RN aa5 Tawana Keita RN RN ll2 Corrections: (The following items were deleted from the chart) 09:44 09:03 08/03/2020 09:03 Discharged to Home. Impression: Effusion, left knee; Pain in ll2 left knee. Condition is Stable. Forms are Medication Reconciliation Form, Thank You Letter, Antibiotic Education, Prescription Opioid Use. Follow up: Private Physician; When: 2 - 3 days; Reason: Recheck today's complaints, Continuance of care, Re-evaluation by your physician. Follow up: Kenroy Loyd; When: 2 - 3 days; Reason: Recheck today's complaints, Re-evaluation by your physician. Problem is new. Symptoms have improved. jason
[2020-08-03 12:00] VITALS: BP 162/95; TEMP 98.3; O2SAT 95
== END 2020-08-03 09:44 | disposition home or self-care (01) ==
LOC: ER 08:00
DX: M25.462 Effusion, left knee (principal); F17.210 Nicotine dependence, cigarettes, uncomplicated; Z91.048 Other nonmedicinal substance allergy status
CPT/HCPCS: 96372; 99284

== ENCOUNTER 2021-06-24 17:20 | Emergency (ER) | payer SELFPAY ==
[2021-06-24] MEDS ORDERED: METOCLOPRAMIDE 10 MG/2mL INJ ONE (20:16)
[2021-06-24] MEDS ORDERED: DIPHENHYDRAMINE 50 MG/ML VIAL ONE (20:16)
[2021-06-24] MEDS ORDERED: NA CHLORIDE 0.9% 1,000 ML ONE (20:16)
--- NOTE | 2021-06-24 20:19 | RAD REPORT ---
EXAM DESCRIPTION: CT - Head Brain Wo Cont - 06/24/2021 8:12 pm CLINICAL HISTORY: HEADACHE Headache, drowsiness COMPARISON: Head angio dated 12/30/2019; Head Brain Wo Cont dated 12/30/2019 TECHNIQUE: All CT scans are performed using dose optimization technique as appropriate and may inclu de automated exposure control or mA/KV adjustment according to patient size. FINDINGS: No intracranial hemorrhage, hydrocephalus or extra-axial fluid collection.No areas of brai n edema or evidence of midline shift. The paranasal sinuses and mastoids are clear. The calvarium is intact. IMPRESSION: No acute intracranial abnormality.
[2021-06-24 20:32] LABS: Absolute Lymphocytes (CBC) 1.4 K/uL (0.7-4.9); Basophils % 0.7 % (0-1.3); Lymphocytes % 19.4 % (15.3-44.8); MPV 8.4 fL (7.6-11.3); RBC Red Blood Cell Count 4.43 M/uL (4.33-5.43)
[2021-06-24 20:43] LABS: ALT/SGPT 33 U/L (12-78); AST/SGOT 22 U/L (15-37); Albumin 3.9 g/dL (3.4-5.0); Alkaline Phosphatase 52 U/L (45-117); BUN Blood Urea Nitrogen 11 mg/dL (7-18); Bicarbonate 30 mmol/L (21-32); Bilirubin Direct < 0.1 mg/dL (0-0.2); Bilirubin Total 0.4 mg/dL (0.2-1.0); Glucose Level 106 mg/dL (74-106); Potassium 3.5 mmol/L (3.5-5.1); Protein, Total 7.2 g/dL (6.4-8.2); Sodium Level 142 mmol/L (136-145)
[2021-06-24] MEDS ORDERED: dexAMETHasone 10 MG/ML VIAL ONE (22:27)
[2021-06-24] MEDS ORDERED: KETOROLAC 30 MG/ML INJ ONE (22:27)
--- NOTE | 2021-06-24 22:52 | EDPHYS ---
Physician Documentation [facility] Name: Cameron Presley III Age: 46 yrs Sex: Male : 1975 Arrival Date: 06/24/2021 Time: 17:21 Bed 11 Private MD: ED Physician Fan Martinez HPI: 06/24 20:05 This 46 yrs old Black Male presents to ER via Ambulatory with complaints of Headache, mh7 Vomiting. 20:05 The patient complains of pain to the Right side of head. The patient describes the mh7 headache as intermittent, throbbing, waxing and waning. Onset: The symptoms/episode began/occurred 1 month(s) ago, and became worse 2 week(s) ago. Associated signs and symptoms: Pertinent positives: nausea, Photophobia vomiting, Pertinent negatives: altered mental status, dizziness, fever, malaise, neck stiffness, paresthesias, rash, sinus congestion, sinus tenderness, vision changes, vision loss, weakness, vertigo. Severity of symptoms: At its worst the pain was moderate, 7 day(s) ago, in the emergency department the pain has improved, mildly. Headache History: The patient has had previous headaches and this one is similar to previous episodes. The symptoms are alleviated by over the counter pain medication, OTC NSAIDS, Tylenol, the symptoms are aggravated by lights, noise. The patient has experienced similar episodes in the past, multiple times. Historical: - Allergies: 17:30 Iodine; iw - Home Meds: 17:30 None [Active]; iw - PMHx: 17:30 Migraines; iw - PSHx: 17:30 None; iw - Immunization history:: Client reports receiving the 2nd dose of the Covid vaccine. - Social history:: Smoking status: Patient reports the use of cigarette tobacco products, smokes one pack cigarettes per day. ROS: 20:05 Constitutional: Negative for fever, chills, and weight loss, Eyes: Negative for injury, mh7 pain, redness, and discharge, ENT: Negative for injury, pain, and discharge, Neck: Negative for injury, pain, and swelling, Cardiovascular: Negative for chest pain, palpitations, and edema, Respiratory: Negative for shortness of breath, cough, wheezing, and pleuritic chest pain. 20:05 Back: Negative for injury and pain, : Negative for injury, bleeding, discharge, and swelling, MS/Extremity: Negative for injury and deformity, Skin: Negative for injury, rash, and discoloration, Psych: Negative for depression, anxiety, suicide ideation, homicidal ideation, and hallucinations, Allergy/Immunology: Negative for hives, rash, and allergies, Endocrine: Negative for neck swelling, polydipsia, polyuria, polyphagia, and marked weight changes, Hematologic/Lymphatic: Negative for swollen nodes, abnormal bleeding, and unusual bruising. 20:05 Abdomen/GI: Negative for abdominal pain, diarrhea, constipation, abdominal cramps, abdominal distension, anorexia, dysphagia, hematemesis, black/tarry stool, rectal pain, rectal bleeding, bowel incontinence, flatulence. Exam: 20:05 Constitutional: This is a well developed, well nourished patient who is awake, alert, mh7 and in no acute distress. 20:05 Eyes: Pupils equal round and reactive to light, extra-ocular motions intact. Lids and lashes normal. Conjunctiva and sclera are non-icteric and not injected. Cornea within normal limits. Periorbital areas with no swelling, redness, or edema. ENT: Nares patent. No nasal discharge, no septal abnormalities noted. Tympanic membranes are normal and external auditory canals are clear. Oropharynx with no redness, swelling, or masses, exudates, or evidence of obstruction, uvula midline. Mucous membranes moist. Neck: Trachea midline, no thyromegaly or masses palpated, and no cervical lymphadenopathy. Supple, full range of motion without nuchal rigidity, or vertebral point tenderness. No Meningismus. Chest/axilla: Normal chest wall appearance and motion. Nontender with no deformity. No lesions are appreciated. Cardiovascular: Regular rate and rhythm with a normal S1 and S2. No gallops, murmurs, or rubs. Normal PMI, no JVD. No pulse deficits. Respiratory: Lungs have equal breath sounds bilaterally, clear to auscultation and percussion. No rales, rhonchi or wheezes noted. No increased work of breathing, no retractions or nasal flaring. Abdomen/GI: Soft, non-tender, with normal bowel sounds. No distension or tympany. No guarding or rebound. No evidence of tenderness throughout. Back: No spinal tenderness. No costovertebral tenderness. Full range of motion. Skin: Warm, dry with normal turgor. Normal color with no rashes, no lesions, and no evidence of cellulitis. MS/ Extremity: Pulses equal, no cyanosis. Neurovascular intact. Full, normal range of motion. Neuro: Awake and alert, GCS 15, oriented to person, place, time, and situation. Cranial nerves II-XII grossly intact. Motor strength 5/5 in all extremities. Sensory grossly intact. Cerebellar exam normal. Normal gait. Psych: Awake, alert, with orientation to person, place and time. Behavior, mood, and affect are within normal limits. 20:05 Head/face: Noted is tenderness, that is moderate, of the Right side of scalp. Vital Signs: 17:27 BP 162 / 85; Pulse 88; Resp 18 S; Temp 98.3; Pulse Ox 100% on R/A; Height 5 ft. 10 in. iw (177.80 cm); Pain 6/10; 20:00 BP 164 / 85; Pulse 69; Resp 16; Pulse Ox 100% ; vg1 21:15 BP 179 / 90; Pulse 64; Resp 16; Pulse Ox 100% ; vg1 22:09 BP 159 / 82; Pulse 63; Resp 16; Pulse Ox 100% ; vg1 22:50 BP 164 / 91; Pulse 72; Resp 20; Temp 98.2; Pulse Ox 99% ; wr [place] Coma Score: 22:49 Eye Response: spontaneous(4). Verbal Response: oriented(5). Motor Response: obeys mh7 commands(6). Total: 15. MDM: 22:49 Differential diagnosis: cluster headache, intracerebral hemorrhage, migraine, tension mh7 headache. Data reviewed: vital signs, nurses notes, old medical records, lab test result(s), CBC, electrolytes, radiologic studies, CT scan. Data interpreted: Pulse oximetry: on room air is 99 %. Interpretation: normal. Counseling: I had a detailed discussion with the patient and/or guardian regarding: the historical points, exam findings, and any diagnostic results supporting the discharge/admit diagnosis, the presence of at least one elevated blood pressure reading (>120/80) during this emergency department visit, lab results, radiology results, the need for outpatient follow up, a neurologist, to return to the emergency department if symptoms worsen or persist or if there are any questions or concerns that arise at home. Response to treatment: the patient's symptoms have resolved after treatment, the patient's blood pressure is in an acceptable range, mental status has returned to baseline, the patient no longer shows bradycardia, the patient is not short of breath, the patient is not tachycardic, the patient's pain is gone, the patient's temperature has normalized, the patient is now symptom free, patient is well hydrated. 22:52 Patient medically screened. [facility] 06/24 19:41 Order name: CBC with Diff; Complete Time: 21:58 [facility] 06/24 19:41 Order name: BMP; Complete Time: 21:58 [facility] 06/24 19:41 Order name: LFT's; Complete Time: 21:58 [facility] 06/24 19:41 Order name: Protime (+inr); Complete Time: 21:58 [facility] 06/24 19:41 Order name: Ptt, Activated; Complete Time: 21:58 [facility] 06/24 19:41 Order name: CT Head Brain wo Cont; Complete Time: 21:58 [facility] Administered Medications: 19:03 Drug: NS 0.9% 1000 ml Route: IV; Rate: 1000 ml; Site: right antecubital; vg1 21:59 Follow up: IV Status: Completed infusion; IV Intake: 1000ml vg1 19:03 Drug: Reglan (metoCLOPramide) 10 mg Route: IVP; Site: right antecubital; vg1 21:59 Follow up: Response: No adverse reaction; Marked relief of symptoms vg1 19:05 Drug: Benadryl (diphenhydrAMINE) 50 mg Route: IVP; Site: right antecubital; vg1 21:59 Follow up: Response: No adverse reaction; Marked relief of symptoms vg1 22:03 Drug: Decadron - Dexamethasone 10 mg Route: IVP; Site: right antecubital; vg1 22:05 Drug: Ketorolac 30 mg Route: IVP; Site: right antecubital; vg1 Disposition Summary: 06/24/21 22:52 Discharge Ordered Location: Home [facility] Problem: an acute exacerbation [facility] Symptoms: have improved mh Condition: Stable mh Diagnosis - Headache mh7 Followup: [facility] - With: Private Physician - When: 1 - 2 days - Reason: Worsening of condition, Recheck today's complaints, Continuance of care, Re-evaluation by your physician Followup: [facility] - With: Regulo Cole MD - When: 2 - 3 days - Reason: Worsening of condition, Recheck today's complaints Discharge Instructions: - Discharge Summary Sheet [facility] - Migraine Headache, [id number] [facility] Forms: - Medication Reconciliation Form [facility] - Thank You Letter [facility] - Antibiotic Education [facility] - Prescription Opioid Use [facility] Prescriptions: - Fioricet 50-300-40 mg Oral capsule - take 1 capsule by ORAL route every 6 hours As needed as needed; 12 capsule; [facility] Refills: 0, Product Selection Permitted Signatures: Dispatcher [employer] Taylor Belcher RN RN iw Marian Quezada RN RN vg1 Fan Martinez MD MD [facility]
--- NOTE | 2021-06-24 22:52 | ER ---
Nurse's Notes [facility] Name: Cameron Presley III Age: 46 yrs Sex: Male : 1975 Arrival Date: 06/24/2021 Time: 17:21 Bed 11 Private MD: Diagnosis: Headache Presentation: 06/24 17:27 Chief complaint: Patient states: has been having bad migraines for a month , usually iw has them at night but now it's worse for past two weeks, has been taking BC powder and Excedrin, used to take headache mediation a couple years, has seen Dr. Cole in past , also has vomiting everyday for past month. Coronavirus screen: Client presents with at least one sign or symptom that may indicate coronavirus-19. Ebola Screen: Patient negative for fever greater than or equal to 101.5 degrees Fahrenheit, and additional compatible Ebola Virus Disease symptoms Patient denies exposure to infectious person. Patient denies travel to an Ebola-affected area in the 21 days before illness onset. No symptoms or risks identified at this time. Initial Sepsis Screen: Does the patient meet any 2 criteria? No. Patient's initial sepsis screen is negative. Does the patient have a suspected source of infection? No. Patient's initial sepsis screen is negative. Risk Assessment: Do you want to hurt yourself or someone else?. Onset of symptoms was May 2021. 17:27 Method Of Arrival: Ambulatory iw 17:27 Acuity: BOBBY 3 iw Triage Assessment: 20:12 Headache History: The patient has had previous headaches and this one is similar to vg1 previous episodes. Historical: - Allergies: 17:30 Iodine; iw - Home Meds: 17:30 None [Active]; iw - PMHx: 17:30 Migraines; iw - PSHx: 17:30 None; iw - Immunization history:: Client reports receiving the 2nd dose of the Covid vaccine. - Social history:: Smoking status: Patient reports the use of cigarette tobacco products, smokes one pack cigarettes per day. Screenin:11 Abuse screen: Denies threats or abuse. Nutritional screening: No deficits noted. vg1 Tuberculosis screening: No symptoms or risk factors identified. Fall Risk No fall in past 12 months (0 pts). No secondary diagnosis (0 pts). IV access (20 points). Ambulatory Aid- None/Bed Rest/Nurse Assist (0 pts). Gait- Normal/Bed Rest/Wheelchair (0 pts) Mental Status- Oriented to own ability (0 pts). Total Oconnor Fall Scale indicates No Risk (0-24 pts). Assessment: 20:00 General: Appears in no apparent distress. uncomfortable, Behavior is calm, cooperative. vg1 Pain: Complains of pain in head Pain currently is 6 out of 10 on a pain scale. Quality of pain is described as pressure, throbbing, Pain began x1 month; has become worse within the past week Noted to be grimacing. Neuro: Level of Consciousness is awake, alert, obeys commands, Oriented to person, place, time, situation. Cardiovascular: Patient's skin is warm and dry. Respiratory: Airway is patent Respiratory effort is even, unlabored. GI: Reports nausea, vomiting. : No signs and/or symptoms were reported regarding the genitourinary system. EENT: No signs and/or symptoms were reported regarding the EENT system. Derm: Skin is intact, is healthy with good turgor. Musculoskeletal: Circulation, motion, and sensation intact. 21:17 Reassessment: Patient appears in no apparent distress at this time. Patient and/or vg1 family updated on plan of care and expected duration. Pain level reassessed. Patient is alert, oriented x 3, equal unlabored respirations, skin warm/dry/pink. Patient is alert/active/playful, equal unlabored respirations, skin warm/dry/pink. Pain level 3/10 Patient states feeling better. 22:03 Reassessment: Patient appears in no apparent distress at this time. Patient and/or vg1 family updated on plan of care and expected duration. Pain level reassessed. Patient is alert, oriented x 3, equal unlabored respirations, skin warm/dry/pink. Stated pain level 8/10. Vital Signs: 17:27 BP 162 / 85; Pulse 88; Resp 18 S; Temp 98.3; Pulse Ox 100% on R/A; Height 5 ft. 10 in. iw (177.80 cm); Pain 6/10; 20:00 BP 164 / 85; Pulse 69; Resp 16; Pulse Ox 100% ; vg1 21:15 BP 179 / 90; Pulse 64; Resp 16; Pulse Ox 100% ; vg1 22:09 BP 159 / 82; Pulse 63; Resp 16; Pulse Ox 100% ; vg1 22:50 BP 164 / 91; Pulse 72; Resp 20; Temp 98.2; Pulse Ox 99% ; wr Eyota Coma Score: 22:49 Eye Response: spontaneous(4). Verbal Response: oriented(5). Motor Response: obeys [facility] commands(6). Total: 15. ED Course: 17:21 Patient arrived in ED. as 17:30 Triage completed. iw 17:30 Arm band placed on. iw 19:25 Fan Martinez MD is Attending Physician. 7 19:38 Marian Quezada RN is Primary Nurse. vg1 20:09 Initial lab(s) drawn, by me, sent to lab. Inserted saline lock: 20 gauge in right vg1 antecubital area, using aseptic technique. Blood collected. 20:11 Patient has correct armband on for positive identification. Call light in reach. Door vg1 closed. Noise minimized. Lights dimmed. 20:12 CT Head Brain wo Cont In Process Unspecified. EDMS 20:12 No provider procedures requiring assistance completed. vg1 22:13 Report given to DAVID Dubon. vg1 22:51 Regulo Cole MD is Referral Physician. 7 Administered Medications: 19:03 Drug: NS 0.9% 1000 ml Route: IV; Rate: 1000 ml; Site: right antecubital; vg1 21:59 Follow up: IV Status: Completed infusion; IV Intake: 1000ml vg1 19:03 Drug: Reglan (metoCLOPramide) 10 mg Route: IVP; Site: right antecubital; vg1 21:59 Follow up: Response: No adverse reaction; Marked relief of symptoms vg1 19:05 Drug: Benadryl (diphenhydrAMINE) 50 mg Route: IVP; Site: right antecubital; vg1 21:59 Follow up: Response: No adverse reaction; Marked relief of symptoms vg1 22:03 Drug: Decadron - Dexamethasone 10 mg Route: IVP; Site: right antecubital; vg1 22:05 Drug: Ketorolac 30 mg Route: IVP; Site: right antecubital; vg1 Intake: 21:59 IV: 1000ml; Total: 1000ml. vg1 Outcome: 22:52 Discharge ordered by . [facility] 23:15 Patient left the ED. wr Signatures: Dispatcher [employer] Nyasia Nair Irene, RN RN iw Marian Quezada RN RN vg1 Fan Martinez MD MD 7 Farzad Freeman Corrections: (The following items were deleted from the chart) 22:12 21:17 Reassessment: Patient appears in no apparent distress at this time. Patient vg1 and/or family updated on plan of care and expected duration. Pain level reassessed. Patient is alert, oriented x 3, equal unlabored respirations, skin warm/dry/pink. Patient is alert/active/playful, equal unlabored respirations, skin warm/dry/pink. Patient denies pain at this time. Patient states feeling better. vg1 22:51 22:36 BP 164 / 91; Pulse 72bpm; Resp 20bpm; Pulse Ox 72%; Temp 98.2F; wr wr
[2021-06-24 23:26] VITALS: BP 164/91; TEMP 98.2; O2SAT 99
== END 2021-06-24 23:15 | disposition home or self-care (01) ==
LOC: ER 17:20
DX: R51.9 Headache, unspecified (principal); Z91.048 Other nonmedicinal substance allergy status; F17.210 Nicotine dependence, cigarettes, uncomplicated
CPT/HCPCS: 36415; 70450; 80048; 80076; 85025; 85610; 85730; 96361; 96374; 96375; 99284; J1100; J1200; J2765; J7030

== ENCOUNTER 2022-11-14 12:35 | Emergency (ER) | payer SELFPAY ==
--- OUTSIDE RECORDS SUMMARY | 2022-11-14 12:39 | XMS REPORT | Continuity of Care Document ---
:1975 Author Organization [facility] t Address 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 [facility] Diverticul Diverticul Problem Active C ommon itis of itis of [facility] intestine intestine - [facility] I without without St perforatio perforatio Isabela kes n or n or Medical abscess abscess Center with with bleeding, bleeding, unspecifie unspecifie d part of d part of intestinal intestinal tract tract Cluster Cluster Problem Active Common headache headache [facility] Migraine Migraine Problem Active Commo n without without Spirit status status - [facility] migrainosu migrainosu St s, not s, not [facility]ract[facility] dical e, e, Center unspecifie unspecifie d migraine d migraine type type Acute pain Acute pain Diagnosis Active Common of right of right [facility] knee knee [facility] Instabilit Instabilit Diagnosis Active Common y of right y of right Sp adan knee joint knee joint - [facility] Allergies, Adverse Reactions, Alerts This patient has no known allergies or adverse reactions. Medications Ordered Filled Start Stop Current Ordering Indication Dosage Frequency Signature Comments Components Source Medication Medication Date Date Medication? Clinician (SIG) Name Name TAKE No CAPSULE BY 8-18 MOUTH EVERY 00:00: 6 HOURS 00 NEEDED Take 3 2021-0 No tablets by 8-18 mouth one 00:00: hour prior 00 to sex as needed. TAKE 1 2022-0 No CAPSULE BY 8-18 MOUTH EVERY 00:00: 6 HOURS 00 NEEDED Take 3 2021-0 No tablets by 8-18 mouth one 00:00: hour prior 00 to sex as needed. TAKE 1 2021-0 No 50 TABLET 8-12 DAILY. 00:00: 00 TAKE 1 2021-0 No 50 TABLET 8-12 DAILY. 00:00: 00 Pennsaid Pennsaid 2017- No Na Singh 2 C ommon 12-18 applicatio Spirit 00:00: 00:00 ns to - [facility] 00 :00 affected [facility] Duexis Duexis 2018- No Na Singh 1 tablet C ommon 12-18 [facility] 00:00: 00:00 - [facility] 00 :00 [facility] Qudexy XR Qudexy XR Yes Na Singh 1 capsule Common [facility] Cambia Cambia Yes Na Singh not Common defined [facility] Indomethaci Indomethaci Yes Na Singh 1 capsule Common n n with food Spirit or milk [facility] Vital Signs Vital Name Observation Time Observation Value Comments Source BP Systolic 2022-05-05 14:57:00 177 mm[Hg] BP Diastolic 2022-05-05 14:57:00 89 mm[Hg] Weight Measured 2022-05-05 14:57:00 231.00 pounds Height Measured 2022-05-05 14:57:00 70.47 inches Body Temperature 2022-05-05 14:57:00 98.20 degrees Heart Rate 2022-05-05 14:57:00 76.00 /min Respiratory Rate 2022-05-05 14:57:00 16.00 /min Procedures This patient has no known procedures. Plan of Care Planned Activity Planned Date Details Comments Source Goal Plan of Care Note [code = 46117-0] Goal Plan of Care Note [code = 99451-0] Goal Plan of Care Note [code = 42045-0] Goal Plan of Care Note [code = 87917-9] Goal Plan of Care Note [code = 44139-3] Goal Plan of Care Note [code = 43890-2] Goal Plan of Care Note [code = 77214-8] Goal Plan of Care Note [code = 87447-1] Goal Plan of Care Note [code = 24023-3] Goal Plan of Care Note [code = 69002-6] Goal Plan of Care Note [code = 72419-7] Goal Plan of Care Note [code = 10455-9] Goal Plan of Care Note [code = 68228-6] Goal Plan of Care Note [code = 82268-6] Encounters Start End Encounter Admission Attending Care Care Encounter Source Date/Time Date/Time Type Type Clinicians Facility Department ID 2022-10-31 2022-10-31 Outpatient [facility] [id number] Rasheed 09:55:38 09:55:38 [id number] F Sav 2022-10-30 2022-10-30 Outpatient [facility] [id number] Rasheed 13:28:53 13:28:53 [id number] F Sav 2022-05-12 2022-05-12 Outpatient [id number] 00:00:00 00:00:00 Visit [id number] 2022-05-05 2022-05-05 Outpatient [id number] 00:00:00 00:00:00 Visit [id number] 2017-12-25 2017-12-25 Out[facility] [id number] Common 14:15:00 14:15:00 [facility] 2017-12-18 2017-12-18 [facility] 13 [id number] Common 11:30:00 11:30:00 [facility] Results Test Description Test Time Test Comments Results Result Comments Source VITAMIN D, 25 OH 2022-05-09 04:26:01 Test Item Value Reference Range Interpretation Comme nts VITAMIN D, 25 OH (test code 26 NG/ML SEE BELOW L NOTE: 25-HYDROXYVITAMIN D ASSAY = 4958) INCLUDES 25-HYD ROXYVITAMIN D2 AND D3. METHODOLOGY IS CHEMILUMINESCENT IMMUNOASSAY. INTERPRETIVE RANGES PED IATRIC (<17 YEARS) . . . . . . . . . . . NG/ML 20-100ADULT: INSUFFICIENT . . . . . . . . . . . . . . NG/ML <20 S UBOPTIMAL . . . . . . . . . . . . . . . NG/ML 20-29 OPTIMAL . . . . . . . . . . . . . . . . . NG/ML 30-10 0 VITAMIN D, 25 [id number] 00:00:00 Test Item Value Reference Range Interpretation Comments VITAMIN D, 25 OH (test code = 4958) 26 NG/ML VITAMIN D, 25 [id number] 00:00:00 Test Item Value Reference Range Interpretation Comments VITAMIN D, 25 OH (test code = 4958) 26 NG/ML VITAMIN D, 25 [id number] 00:00:00 Test Item Value Reference Range Interpretation Comments VITAMIN D, 25 OH (test code = 4958) 26 NG/ML VITAMIN D, 25 [id number] 00:00:00 Test Item Value Reference Range Interpretation Comments VITAMIN D, 25 OH (test code = 4958) 26 NG/ML [id number] 01:47:31 Test Item Value Reference Range Interpretation Comments TESTOSTERONE (test 555 NG/DL 300-890 UNLESS O THERWISE code = 2830) INDICATED, ALL TESTING PERFORMED [facility], [address] DIRECTOR: CRISTINA DANIELLE M.D. CLIA NUMBER [id number] CAP ACCREDITATION N O. [id number] COMPREHENSIVE METABOLIC [id number] 00:56:21 Test Item Value Reference Range Interpretation Comments GLUCOSE (test code = 93 MG/DL 70-99 2216) BUN (test code = 15 MG/DL 6-20 2207) CREATININE (test 1.02 MG/DL 0.80-1.40 code = 2214) eGFR (2020 CKD-EPI) 93 ML/MIN/1.73 >60 (test code = 94081) CALC BUN/CREAT (test 15 RATIO 6-28 code = 2235) SODIUM (test code = 142 MEQ/L 157-321 2883) POTASSIUM (test code 4.0 MEQ/L 3.5-5.4 = 2228) CHLORIDE (test code 103 MEQ/L 95-107 = 2215) CARBON DIOXIDE (test 27 MEQ/L 19-31 code = 2206) CALCIUM (test code = 9.6 MG/DL 8.5-10.5 2208) PROTEIN, TOTAL (test 6.8 G/DL 6.1-8.3 code = 2229) ALBUMIN (test code = 4.5 G/DL 3.5-5.2 2200) CALC GLOBULIN (test 2.3 G/DL 1.9-3.7 code = 2240) CALC A/G RATIO (test 2.0 RATIO 1.0-2.6 code = 2234) BILIRUBIN, TOTAL 0.4 MG/DL See_Comment [Automated message] (test code = 220) The syste m which generated this result transmit pérez reference range : <=1.2. The refe rence range was not u sed to interpret th is result as normal/abnormal . ALKALINE PHOSPHATASE 54 U/L 40-119 (test code = 220) AST (test code = 18 U/L 9-50 2217) ALT (test code = 14 U/L 5-50 2218) LIPID [id number] 00:56:21 Test Item Value Reference Range Interpretation Comments CHOLESTEROL (test 144 MG/DL <200 code = 2210) TRIGLYCERIDES (test 219 MG/DL <150 H code = 2232) HDL CHOLESTEROL (test 42 MG/DL >39 code = 2220) CALC LDL CHOL (test 70 MG/DL <100 NOTE: C ALCULATED LDL code = 2237) IS BASED ON SANCHO-MCCANN METHOD WHICHINCLUDES ADJUSTABLE TRIGLYCERIDE:VL DL CHOLESTEROL RAT IO.THIS FACTOR VARIES B Y MEASURED TRIGLY CERIDE AND NON-HDLCHOL ESTEROL CONCENTRATIONS WITH INCREASED CALCU LATED LDL SEENIN HIGH ER TRIGLYCERIDE OR LOWER NON-HDL SPECIME NS. FOR MOREINFORMATION , SEE CLIENT ANNOUNCE MENT AT [email or web address] RISK RATIO LDL/HDL 1.67 RATIO <3.55 (test code = 2238) COMPREHENSIVE METABOLIC [id number] 00:00:00 Test Item Value Reference Range Interpretation Comments GLUCOSE (test code = 2217) 93 MG/DL BUN (test code = 2208) 15 MG/DL CREATININE (test code = 2214) 1.02 MG/DL eGFR (2020 CKD-EPI) (test code 93 ML/MIN/1.73 = 65625) CALC BUN/CREAT (test code = 15 RATIO 2235) SODIUM (test code = 2231) 142 MEQ/L POTASSIUM (test code = 2228) 4.0 MEQ/L CHLORIDE (test code = 2215) 103 MEQ/L CARBON DIOXIDE (test code = 27 MEQ/L 2205) CALCIUM (test code = 2209) 9.6 MG/DL PROTEIN, TOTAL (test code = 6.8 G/DL 2228) ALBUMIN (test code = 2201) 4.5 G/DL CALC GLOBULIN (test code = 2.3 G/DL 2239) CALC A/G RATIO (test code = 2.0 RATIO 2233) BILIRUBIN, TOTAL (test code = 0.4 MG/DL 2206) ALKALINE PHOSPHATASE (test 54 U/L code = 2204) AST (test code = 2218) 18 U/L ALT (test code = 2219) 14 U/L LIPID [id number] 00:00:00 Test Item Value Reference Range Interpretation Comments CHOLESTEROL (test code = 2210) 144 MG/DL TRIGLYCERIDES (test code = 2232) 219 MG/DL HDL CHOLESTEROL (test code = 2220) 42 MG/DL CALC LDL CHOL (test code = 2237) 70 MG/DL RISK RATIO LDL/HDL (test code = 1.67 RATIO 2238) LIPID [id number] 00:00:00 Test Item Value Reference Range Interpretation Comments CHOLESTEROL (test code = 2210) 144 MG/DL TRIGLYCERIDES (test code = 2232) 219 MG/DL HDL CHOLESTEROL (test code = 2220) 42 MG/DL CALC LDL CHOL (test code = 2237) 70 MG/DL RISK RATIO LDL/HDL (test code = 1.67 RATIO 2238) [id number] 00:00:00 Test Item Value Reference Range Interpretation Comments TESTOSTERONE (test code = 2830) 555 NG/DL [id number] 00:00:00 Test Item Value Reference Range Interpretation Comments TESTOSTERONE (test code = 2830) 555 NG/DL COMPREHENSIVE METABOLIC [id number] 00:00:00 Test Item Value Reference Range Interpretation Comments GLUCOSE (test code = 2217) 93 MG/DL BUN (test code = 2208) 15 MG/DL CREATININE (test code = 2214) 1.02 MG/DL eGFR (2020 CKD-EPI) (test code 93 ML/MIN/1.73 = 01702) CALC BUN/CREAT (test code = 15 RATIO 2235) SODIUM (test code = 2231) 142 MEQ/L POTASSIUM (test code = 2228) 4.0 MEQ/L CHLORIDE (test code = 2215) 103 MEQ/L CARBON DIOXIDE (test code = 27 MEQ/L 2205) CALCIUM (test code = 2209) 9.6 MG/DL PROTEIN, TOTAL (test code = 6.8 G/DL 2228) ALBUMIN (test code = 2201) 4.5 G/DL CALC GLOBULIN (test code = 2.3 G/DL 2240) CALC A/G RATIO (test code = 2.0 RATIO 2234) BILIRUBIN, TOTAL (test code = 0.4 MG/DL 2206) ALKALINE PHOSPHATASE (test 54 U/L code = 2204) AST (test code = 2218) 18 U/L ALT (test code = 2219) 14 U/L COMPREHENSIVE METABOLIC [id number] 00:00:00 Test Item Value Reference Range Interpretation Comments GLUCOSE (test code = 2217) 93 MG/DL BUN (test code = 2208) 15 MG/DL CREATININE (test code = 2214) 1.02 MG/DL eGFR (2020 CKD-EPI) (test code 93 ML/MIN/1.73 = 47988) CALC BUN/CREAT (test code = 15 RATIO 2235) SODIUM (test code = 2231) 142 MEQ/L POTASSIUM (test code = 2228) 4.0 MEQ/L CHLORIDE (test code = 2215) 103 MEQ/L CARBON DIOXIDE (test code = 27 MEQ/L 220) CALCIUM (test code = 2209) 9.6 MG/DL PROTEIN, TOTAL (test code = 6.8 G/DL 2228) ALBUMIN (test code = 2201) 4.5 G/DL CALC GLOBULIN (test code = 2.3 G/DL 2240) CALC A/G RATIO (test code = 2.0 RATIO 2234) BILIRUBIN, TOTAL (test code = 0.4 MG/DL 2206) ALKALINE PHOSPHATASE (test 54 U/L code = 2204) AST (test code = 2218) 18 U/L ALT (test code = 2219) 14 U/L LIPID [id number] 00:00:00 Test Item Value Reference Range Interpretation Comments CHOLESTEROL (test code = 2210) 144 MG/DL TRIGLYCERIDES (test code = 2232) 219 MG/DL HDL CHOLESTEROL (test code = 2220) 42 MG/DL CALC LDL CHOL (test code = 2237) 70 MG/DL RISK RATIO LDL/HDL (test code = 1.67 RATIO 2238) LIPID [id number] 00:00:00 Test Item Value Reference Range Interpretation Comments CHOLESTEROL (test code = 2210) 144 MG/DL TRIGLYCERIDES (test code = 2232) 219 MG/DL HDL CHOLESTEROL (test code = 2220) 42 MG/DL CALC LDL CHOL (test code = 2237) 70 MG/DL RISK RATIO LDL/HDL (test code = 1.67 RATIO 2238) [id number] 00:00:00 Test Item Value Reference Range Interpretation Comments TESTOSTERONE (test code = 2830) 555 NG/DL [id number] 00:00:00 Test Item Value Reference Range Interpretation Comments TESTOSTERONE (test code = 2830) 555 NG/DL COMPREHENSIVE METABOLIC [id number] 00:00:00 Test Item Value Reference Range Interpretation Comments GLUCOSE (test code = 2217) 93 MG/DL BUN (test code = 2208) 15 MG/DL CREATININE (test code = 2214) 1.02 MG/DL eGFR (2020 CKD-EPI) (test code 93 ML/MIN/1.73 = 03833) CALC BUN/CREAT (test code = 15 RATIO 2235) SODIUM (test code = 2231) 142 MEQ/L POTASSIUM (test code = 2228) 4.0 MEQ/L CHLORIDE (test code = 2215) 103 MEQ/L CARBON DIOXIDE (test code = 27 MEQ/L 2205) CALCIUM (test code = 2209) 9.6 MG/DL PROTEIN, TOTAL (test code = 6.8 G/DL 2228) ALBUMIN (test code = 220) 4.5 G/DL CALC GLOBULIN (test code = 2.3 G/DL 2239) CALC A/G RATIO (test code = 2.0 RATIO 4) BILIRUBIN, TOTAL (test code = 0.4 MG/DL 2206) ALKALINE PHOSPHATASE (test 54 U/L code = 2204) AST (test code = 2218) 18 U/L ALT (test code = 2219) 14 U/L HEMOGLOBIN [id number] 02:39:31 Test Item Value Reference Range Interpretation Comments HEMOGLOBIN A1c (test code = 01394) 6.1 % 4.2-5.6 H CBC W/AUTO DIFF WITH [id number] 02:12:46 Test Item Value Reference Range Interpretation Comments WBC (test code = 6.2 K/UL 3.5-11.0 1001) RBC (test code = 4.43 M/UL 4.50-6.10 L 1002) HEMOGLOBIN (test code 13.8 G/DL 13.5-17.0 = 1003) HEMATOCRIT (test code 40.7 % 40.0-51.0 = 1004) MCV (test code = 91.9 fL 80.0-99.0 1005) MCH (test code = 31.2 PG 25.0-33.0 1006) MCHC (test code = 33.9 G/DL 31.0-36.0 1007) RDW (test code = 14.1 % 11.5-15.0 1038) NEUTROPHILS (test 52.4 % code = 1008) LYMPHOCYTES (test 34.3 % code = 1010) MONOCYTES (test code 9.5 % = 1011) EOSINOPHILS (test 2.9 % code = 1012) BASOPHILS (test code 0.6 % = 1013) IMMATURE GRANULOCYTES 0.3 % (test code = 1036) NUCLEATED RBCS (test 0.0 /100 WBC'S See_Comment [Aut omated code = 1065) message] The sy stem which generated this result transmitted reference range : 0.0. The refere nce range was not u sed to interpret th is result as normal/abnormal . PLATELET COUNT (test 242 K/UL 130-400 code = 1015) ABSOLUTE NEUTROPHILS 3.25 K/UL 1.50-7.50 (test code = 1066) ABSOLUTE LYMPHOCYTES 2.13 K/UL 1.00-4.00 (test code = 1067) ABSOLUTE MONOCYTES 0.59 K/UL 0.20-1.00 (test code = 1068) ABSOLUTE EOSINOPHILS 0.18 K/UL 0.00-0.50 (test code = 1040) ABSOLUTE BASOPHILS 0.04 K/UL 0.00-0.20 (test code = 1069) ABS IMMATURE 0.02 K/UL 0.00-0.10 GRANULOCYTES (test code = 1020) ABS NUCLEATED RBCS 0.00 K/UL 0.00-0.11 (test code = 45411) HEMOGLOBIN [id number] 00:00:00 Test Item Value Reference Range Interpretation Comments HEMOGLOBIN A1c (test code = 15306) 6.1 % HEMOGLOBIN [id number] 00:00:00 Test Item Value Reference Range Interpretation Comments HEMOGLOBIN A1c (test code = 73668) 6.1 % HEMOGLOBIN [id number] 00:00:00 Test Item Value Reference Range Interpretation Comments HEMOGLOBIN A1c (test code = 68776) 6.1 % CBC W/AUTO [id number] 00:00:00 Test Item Value Reference Range Interpretation Comments WBC (test code = 1001) 6.2 K/UL RBC (test code = 1002) 4.43 M/UL HEMOGLOBIN (test code = 1003) 13.8 G/DL HEMATOCRIT (test code = 1004) 40.7 % MCV (test code = 1005) 91.9 fL MCH (test code = 1006) 31.2 PG MCHC (test code = 1007) 33.9 G/DL RDW (test code = 1038) 14.1 % NEUTROPHILS (test code = 1008) 52.4 % LYMPHOCYTES (test code = 1010) 34.3 % MONOCYTES (test code = 1011) 9.5 % EOSINOPHILS (test code = 1012) 2.9 % BASOPHILS (test code = 1013) 0.6 % IMMATURE GRANULOCYTES (test 0.3 % code = 1036) NUCLEATED RBCS (test code = 0.0 /100WBC'S 1065) PLATELET COUNT (test code = 242 K/UL 1015) ABSOLUTE NEUTROPHILS (test code 3.25 K/UL = 1066) ABSOLUTE LYMPHOCYTES (test code 2.13 K/UL = 1067) ABSOLUTE MONOCYTES (test code = 0.59 K/UL 1068) ABSOLUTE EOSINOPHILS (test code 0.18 K/UL = 1040) ABSOLUTE BASOPHILS (test code = 0.04 K/UL 1069) ABS IMMATURE GRANULOCYTES (test 0.02 K/UL code = 1020) ABS NUCLEATED RBCS (test code = 0.00 K/UL 70020) CBC W/AUTO [id number] 00:00:00 Test Item Value Reference Range Interpretation Comments WBC (test code = 1001) 6.2 K/UL RBC (test code = 1002) 4.43 M/UL HEMOGLOBIN (test code = 1003) 13.8 G/DL HEMATOCRIT (test code = 1004) 40.7 % MCV (test code = 1005) 91.9 fL MCH (test code = 1006) 31.2 PG MCHC (test code = 1007) 33.9 G/DL RDW (test code = 1038) 14.1 % NEUTROPHILS (test code = 1008) 52.4 % LYMPHOCYTES (test code = 1010) 34.3 % MONOCYTES (test code = 1011) 9.5 % EOSINOPHILS (test code = 1012) 2.9 % BASOPHILS (test code = 1013) 0.6 % IMMATURE GRANULOCYTES (test 0.3 % code = 1036) NUCLEATED RBCS (test code = 0.0 /100WBC'S 1065) PLATELET COUNT (test code = 242 K/UL 1015) ABSOLUTE NEUTROPHILS (test code 3.25 K/UL = 1066) ABSOLUTE LYMPHOCYTES (test code 2.13 K/UL = 1067) ABSOLUTE MONOCYTES (test code = 0.59 K/UL 1068) ABSOLUTE EOSINOPHILS (test code 0.18 K/UL = 1040) ABSOLUTE BASOPHILS (test code = 0.04 K/UL 1069) ABS IMMATURE GRANULOCYTES (test 0.02 K/UL code = 1020) ABS NUCLEATED RBCS (test code = 0.00 K/UL 76967) CBC W/AUTO [id number] 00:00:00 Test Item Value Reference Range Interpretation Comments WBC (test code = 1001) 6.2 K/UL RBC (test code = 1002) 4.43 M/UL HEMOGLOBIN (test code = 1003) 13.8 G/DL HEMATOCRIT (test code = 1004) 40.7 % MCV (test code = 1005) 91.9 fL MCH (test code = 1006) 31.2 PG MCHC (test code = 1007) 33.9 G/DL RDW (test code = 1038) 14.1 % NEUTROPHILS (test code = 1008) 52.4 % LYMPHOCYTES (test code = 1010) 34.3 % MONOCYTES (test code = 1011) 9.5 % EOSINOPHILS (test code = 1012) 2.9 % BASOPHILS (test code = 1013) 0.6 % IMMATURE GRANULOCYTES (test 0.3 % code = 1036) NUCLEATED RBCS (test code = 0.0 /100WBC'S 1065) PLATELET COUNT (test code = 242 K/UL 1015) ABSOLUTE NEUTROPHILS (test code 3.25 K/UL = 1066) ABSOLUTE LYMPHOCYTES (test code 2.13 K/UL = 1067) ABSOLUTE MONOCYTES (test code = 0.59 K/UL 1068) ABSOLUTE EOSINOPHILS (test code 0.18 K/UL = 1040) ABSOLUTE BASOPHILS (test code = 0.04 K/UL 1069) ABS IMMATURE GRANULOCYTES (test 0.02 K/UL code = 1020) ABS NUCLEATED RBCS (test code = 0.00 K/UL 18094) HEMOGLOBIN [id number] 00:00:00 Test Item Value Reference Range Interpretation Comments HEMOGLOBIN A1c (test code = 86138) 6.1 % HEMOGLOBIN [id number] 00:00:00 Test Item Value Reference Range Interpretation Comments HEMOGLOBIN A1c (test code = 42618) 6.1 % HEMOGLOBIN [id number] 00:00:00 Test Item Value Reference Range Interpretation Comments HEMOGLOBIN A1c (test code = 43243) 6.1 % CBC W/AUTO [id number] 00:00:00 Test Item Value Reference Range Interpretation Comments WBC (test code = 1001) 6.2 K/UL RBC (test code = 1002) 4.43 M/UL HEMOGLOBIN (test code = 1003) 13.8 G/DL HEMATOCRIT (test code = 1004) 40.7 % MCV (test code = 1005) 91.9 fL MCH (test code = 1006) 31.2 PG MCHC (test code = 1007) 33.9 G/DL RDW (test code = 1038) 14.1 % NEUTROPHILS (test code = 1008) 52.4 % LYMPHOCYTES (test code = 1010) 34.3 % MONOCYTES (test code = 1011) 9.5 % EOSINOPHILS (test code = 1012) 2.9 % BASOPHILS (test code = 1013) 0.6 % IMMATURE GRANULOCYTES (test 0.3 % code = 1036) NUCLEATED RBCS (test code = 0.0 /100WBC'S 1065) PLATELET COUNT (test code = 242 K/UL 1015) ABSOLUTE NEUTROPHILS (test code 3.25 K/UL = 1066) ABSOLUTE LYMPHOCYTES (test code 2.13 K/UL = 1067) ABSOLUTE MONOCYTES (test code = 0.59 K/UL 1068) ABSOLUTE EOSINOPHILS (test code 0.18 K/UL = 1040) ABSOLUTE BASOPHILS (test code = 0.04 K/UL 1069) ABS IMMATURE GRANULOCYTES (test 0.02 K/UL code = 1020) ABS NUCLEATED RBCS (test code = 0.00 K/UL 85429) CBC W/AUTO [id number] 00:00:00 Test Item Value Reference Range Interpretation Comments WBC (test code = 1001) 6.2 K/UL RBC (test code = 1002) 4.43 M/UL HEMOGLOBIN (test code = 1003) 13.8 G/DL HEMATOCRIT (test code = 1004) 40.7 % MCV (test code = 1005) 91.9 fL MCH (test code = 1006) 31.2 PG MCHC (test code = 1007) 33.9 G/DL RDW (test code = 1038) 14.1 % NEUTROPHILS (test code = 1008) 52.4 % LYMPHOCYTES (test code = 1010) 34.3 % MONOCYTES (test code = 1011) 9.5 % EOSINOPHILS (test code = 1012) 2.9 % BASOPHILS (test code = 1013) 0.6 % IMMATURE GRANULOCYTES (test 0.3 % code = 1036) NUCLEATED RBCS (test code = 0.0 /100WBC'S 1065) PLATELET COUNT (test code = 242 K/UL 1015) ABSOLUTE NEUTROPHILS (test code 3.25 K/UL = 1066) ABSOLUTE LYMPHOCYTES (test code 2.13 K/UL = 1067) ABSOLUTE MONOCYTES (test code = 0.59 K/UL 1068) ABSOLUTE EOSINOPHILS (test code 0.18 K/UL = 1040) ABSOLUTE BASOPHILS (test code = 0.04 K/UL 1069) ABS IMMATURE GRANULOCYTES (test 0.02 K/UL code = 1020) ABS NUCLEATED RBCS (test code = 0.00 K/UL 03098) CBC W/AUTO [id number] 00:00:00 Test Item Value Reference Range Interpretation Comments WBC (test code = 1001) 6.2 K/UL RBC (test code = 1002) 4.43 M/UL HEMOGLOBIN (test code = 1003) 13.8 G/DL HEMATOCRIT (test code = 1004) 40.7 % MCV (test code = 1005) 91.9 fL MCH (test code = 1006) 31.2 PG MCHC (test code = 1007) 33.9 G/DL RDW (test code = 1038) 14.1 % NEUTROPHILS (test code = 1008) 52.4 % LYMPHOCYTES (test code = 1010) 34.3 % MONOCYTES (test code = 1011) 9.5 % EOSINOPHILS (test code = 1012) 2.9 % BASOPHILS (test code = 1013) 0.6 % IMMATURE GRANULOCYTES (test 0.3 % code = 1036) NUCLEATED RBCS (test code = 0.0 /100WBC'S 1065) PLATELET COUNT (test code = 242 K/UL 1015) ABSOLUTE NEUTROPHILS (test code 3.25 K/UL = 1066) ABSOLUTE LYMPHOCYTES (test code 2.13 K/UL = 1067) ABSOLUTE MONOCYTES (test code = 0.59 K/UL 1068) ABSOLUTE EOSINOPHILS (test code 0.18 K/UL = 1040) ABSOLUTE BASOPHILS (test code = 0.04 K/UL 1069) ABS IMMATURE GRANULOCYTES (test 0.02 K/UL code = 1020) ABS NUCLEATED RBCS (test code = 0.00 K/UL [id number])
[2022-11-14 13:46] LABS: Urine Bacteria None Seen /HPF (<20); Urine Mucus Slight /HPF (None Seen); Urine RBC <5 /HPF (None Seen)
--- NOTE | 2022-11-14 13:52 | EDPHYS ---
Physician Documentation [facility] Name: Cameron Presley III Age: 47 yrs Sex: Male : 1975 Arrival Date: 11/14/2022 Time: 12:40 Bed 9 Private MD: ED Physician Wilmer Sow HPI: 11/14 13:37 This 47 yrs old Black Male presents to ER via Ambulatory with complaints of Urinary rn Problem. 13:37 The patient presents with urinary symptoms, dysuria. Onset: The symptoms/episode rn began/occurred yesterday. Modifying factors: The symptoms are alleviated by nothing, the symptoms are aggravated by urinating. Associated signs and symptoms: Pertinent negatives: abdominal pain, fever, hematuria, vomiting. Severity of symptoms: At their worst the symptoms were mild, in the emergency department the symptoms are unchanged. The patient has not experienced similar symptoms in the past. The patient has not recently seen a physician. Pt reports dysuria and "fruity smell" of urine, began yesterday, no trauma, no hematuria, no fever. No abd pain. Reports some concern of possible STI. No penile discharge. No testicular pain or swelling.. Historical: - Allergies: 13:06 Iodine; ap3 - PMHx: 13:06 Migraines; Depressive disorder; Hypertensive disorder; ap3 - Immunization history:: Client reports receiving the 2nd dose of the Covid vaccine, Flu vaccine is not up to date. - Social history:: Smoking status: Patient reports the use of cigarette tobacco products, smokes one pack cigarettes per day. Patient uses alcohol, occasionally. - Family history:: not pertinent. - Hospitalizations: : No recent hospitalization is reported. ROS: 13:37 Constitutional: Negative for fever, chills, and weight loss, Cardiovascular: Negative rn for chest pain, palpitations, and edema, Respiratory: Negative for shortness of breath, cough, wheezing, and pleuritic chest pain, Abdomen/GI: Negative for abdominal pain, nausea, vomiting, diarrhea, and constipation, Back: Negative for injury and pain, : Negative for injury, bleeding, discharge, and swelling. Exam: 13:37 Constitutional: This is a well developed, well nourished patient who is awake, alert, rn seems anxious Cardiovascular: Regular rate and rhythm. No pulse deficits. Neuro: Awake and alert, GCS 15. Normal gait. Vital Signs: 13:04 Pulse 86; Resp 18; Temp 98.3; Pulse Ox 98% ; Weight 103.87 kg; Height 5 ft. 10 in. ap3 (177.80 cm); 13:04 BP 170 / 95; ap3 13:04 Body Mass Index 32.86 (103.87 kg, 177.80 cm) ap3 MDM: 12:47 Patient medically screened. rn 13:49 Differential diagnosis: UTI, prostatitis, urethritis, possible STI. Data reviewed: rn vital signs, nurses notes, lab test result(s), and as a result, I will discharge patient. I considered the following discharge prescriptions or medication management in the emergency department I discussed and recommended Over The Counter medications, Medications were administered in the Emergency Department. See MAR. Test considered but Not performed: Labs: STI testing considered but not performed because will not come back in timely fashion. Counseling: I had a detailed discussion with the patient and/or guardian regarding: the historical points, exam findings, and any diagnostic results supporting the discharge/admit diagnosis, the need for outpatient follow up, to return to the emergency department if symptoms worsen or persist or if there are any questions or concerns that arise at home. Special discussion: I discussed with the patient/guardian in detail that at this point there is no indication for admission to the hospital. It is understood, however, that if the symptoms persist or worsen the patient needs to return immediately for re-evaluation. 11/14 12:54 Order name: Urine Culture rn 11/14 12:54 Order name: Urine Microscopic Only rn 11/14 12:54 Order name: Urine Dipstick-Ancillary (obtain specimen); Complete Time: 13:27 rn 11/14 13:46 Order name: Urine Microscopic Only; Complete Time: 13:47 EDMS Administered Medications: 13:56 Not Given (unable to locate ): Rocephin (cefTRIAXone) 250 mg IM once ld1 13:56 Not Given (pt unable to locate): Flagyl (metroNIDAZOLE) 2 grams PO once ld1 Disposition Summary: 11/14/22 13:51 Discharge Ordered Location: Home rn Problem: new rn Symptoms: are unchanged rn Condition: Stable rn Diagnosis - Dysuria rn Followup: rn - With: Private Physician - When: As needed - Reason: Recheck today's complaints, Re-evaluation by your physician Discharge Instructions: - Discharge Summary Sheet rn - Dysuria rn - Preventing Sexually Transmitted Infections, Adult rn Forms: - Medication Reconciliation Form rn - Thank You Letter rn - Antibiotic tech intern - Prescription Opioid Use rn Prescriptions: - Doxycycline Hyclate 100 mg Oral Tablet - take 1 tablet by ORAL route every 12 hours; 20 tablet; Refills: 0, Product rn Selection Permitted Signatures: Dispatcher [employer] Wilmer Jimenez MD MD rn Prokisch, Amanda, RN RN ap3 Violeta Haas RN ld1
--- NOTE | 2022-11-14 13:52 | ER ---
Nurse's Notes [facility] Name: Cameron Presley III Age: 47 yrs Sex: Male : 1975 Arrival Date: 11/14/2022 Time: 12:40 Bed 9 Private MD: Diagnosis: Dysuria Presentation: 11/14 13:04 Chief complaint: Patient states: he is having difficulty urinating and reports that the ap3 urine is smelling "fruity". Patient is also reporting that it talley when he urinates. Coronavirus screen: At this time, the client does not indicate any symptoms associated with coronavirus-19. Ebola Screen: No symptoms or risks identified at this time. Initial Sepsis Screen: Does the patient meet any 2 criteria? No. Patient's initial sepsis screen is negative. Does the patient have a suspected source of infection? Yes: Dysuria/Frequency/Urgency/UTI. Risk Assessment: Do you want to hurt yourself or someone else? Patient reports no desire to harm self or others. Onset of symptoms was November 11, 2022. 13:04 Method Of Arrival: Ambulatory ap3 13:04 Acuity: BOBBY 3 ap3 Triage Assessment: 13:07 General: Appears in no apparent distress. Behavior is calm, cooperative. Pain: ap3 Complains of pain in with urination. Neuro: Level of Consciousness is awake, alert, obeys commands. Cardiovascular: Respiratory: Airway is patent Respiratory effort is even, unlabored. : Reports pain with urination, urgency. Historical: - Allergies: 13:06 Iodine; ap3 - PMHx: 13:06 Migraines; Depressive disorder; Hypertensive disorder; ap3 - Immunization history:: Client reports receiving the 2nd dose of the Covid vaccine, Flu vaccine is not up to date. - Social history:: Smoking status: Patient reports the use of cigarette tobacco products, smokes one pack cigarettes per day. Patient uses alcohol, occasionally. - Family history:: not pertinent. - Hospitalizations: : No recent hospitalization is reported. Screenin:08 [facility] [place] ED Fall Risk Assessment (Adult) History of falling in the last 3 months, ap3 including since admission No falls in past 3 months (0 pts). Abuse screen: Denies threats or abuse. Nutritional screening: No deficits noted. Tuberculosis screening: No symptoms or risk factors identified. Vital Signs: 13:04 Pulse 86; Resp 18; Temp 98.3; Pulse Ox 98% ; Weight 103.87 kg; Height 5 ft. 10 in. ap3 (177.80 cm); 13:04 BP 170 / 95; ap3 13:04 Body Mass Index 32.86 (103.87 kg, 177.80 cm) ap3 ED Course: 12:40 Patient arrived in ED. mr 12:47 Wilmer Sow MD is Attending Physician. rn 13:06 Triage completed. ap3 13:08 Arm band placed on left wrist. ap3 13:27 Urine Microscopic Only Sent. ld1 13:27 Urine Culture Sent. ld1 13:54 Patient's name was called from ER lobby. No response. Unable to locate patient. Will ld1 disposition as left without being seen by a provider. 13:55 Patient's name was called from ER lobby. No response. Unable to locate patient. Will ld1 disposition as left without being seen by a provider. Administered Medications: 13:56 Not Given (unable to locate ): Rocephin (cefTRIAXone) 250 mg IM once ld1 13:56 Not Given (pt unable to locate): Flagyl (metroNIDAZOLE) 2 grams PO once ld1 Medication: 13:08 VIS not applicable for this client. ap3 Outcome: 13:51 Discharge ordered by . rn 13:57 Patient left the ED. ld1 Signatures: Sia Gore mr Wilmer Sow MD MD rn Prokisch, Amanda, RN RN ap3 Violeta Haas RN RN ld1
[2022-11-14] MEDS ORDERED: CEFTRIAXONE 250 MG/VIAL ONE (13:59)
[2022-11-14] MEDS ORDERED: metroNIDAZOLE 500 MG TABLET ONE (13:59)
[2022-11-14] MEDS ORDERED: WATER FOR INJ,STERILE 10 ML ONE (13:59)
[2022-11-14 14:06] VITALS: BP 170/95; TEMP 98.3; O2SAT 98
[2022-11-16 07:51] LABS: Urine Blood Trace-intact (Negative); Urine Glucose Negative (Negative); Urine Protein 1+ (Negative); Urine Specific Gravity 1.025 (1.005-1.030)
== END 2022-11-14 13:57 | disposition home or self-care (01) ==
LOC: ER 12:35
DX: R30.0 Dysuria (principal); I10 Essential (primary) hypertension; F17.210 Nicotine dependence, cigarettes, uncomplicated; Z91.048 Other nonmedicinal substance allergy status
CPT/HCPCS: 81003; 81015; 87086; 87088; 99282; J0696